=== PATIENT | male | born 1965 | race American Indian/Alaskan Native ===

== ENCOUNTER 2017-12-24 15:00 | Emergency (ER) | payer SELFPAY ==
[2017-12-24 15:24] VITALS: BP 125/81
[2017-12-24] MEDS ORDERED: LIDOCAINE VISCOUS 2% PO ONE (16:09)
[2017-12-24] MEDS ORDERED: ALUM-MAG HYDROX-SIMETH 200-200-20MG/5ML PO ONE (16:09)
[2017-12-24] MEDS ORDERED: NORCO 5/325 PO ONE (16:10)
--- NOTE | 2017-12-24 16:13 | Emergency Department Report ---
HPI - General Chief Complaint: Chest Pain Time Seen by Provider: 12/24/17 15:59 - HPI HPI: The patient is a 52-year-old male who presents for evaluation of chest pain and back pain. The patient has a long-standing history of chronic chest and back pain. He states that his current episode began at 5 AM this morning, greater than 8 hours prior to my evaluation. He states that his chest and back pain have been constant since onset this am, aching in quality, 5/10 in severity, exacerbated with movement. The patient denies blunt trauma to the chest or back , fall, fever, chills, night sweats, cough, dyspnea, syncope, unilateral leg swelling, saddle anesthesia, paresthesias, numbness or tingling in the legs, leg weakness, urine or bowel incontinence or retention, difficulty ambulating, or other focal neurological deficits. ED Past Medical Hx - Past Medical History Hx Hypertension: No Hx CVA: No Hx Heart Attack/AMI: No Hx Congestive Heart Failure: No Hx Diabetes: No Hx Deep Vein Thrombosis: No Hx Pulmonary Embolism: No Hx GERD: Yes Hx Liver Disease: No Hx Renal Disease: No Hx Sickle Cell Disease: No Hx Arthritis: No Hx Headaches / Migraines: Yes (migraines) Hx Seizures: No Hx Kidney Stones: No Hx Psychiatric Treatment: No Hx Asthma: No Hx COPD: No Hx Tuberculosis: No Hx Dementia: No Hx HIV: No Additional medical history: Drug-seeking behavior. Narcotic abuse - patient denies. chronic pain, sciatica - Surgical History Past Surgical History?: Yes Hx Coronary Stent: No Hx Open Heart Surgery: No Hx Pacemaker: No Hx Internal Defibrillator: No Hx Cholecystectomy: Yes Hx Appendectomy: No Hx Breast Surgery: No - Social History Smoking Status: Never Smoker Substance Use Type: None - Medications Home Medications: Home Medications Medication Instructions Recorded Confirmed Last Taken Type Ranitidine HCl [Zantac 150 MG TAB] 75 mg PO QDAY 05/12/16 08/08/16 1 Day Ago History ~05/27/16 75 Famotidine [Pepcid] 20 mg PO BID #30 tablet 08/20/16 Unknown Rx HYDROcodone/APAP 7.5-325 [[place] 1 each PO Q8HR PRN #7 tablet 08/20/16 Unknown Rx 7.5-325 mg TAB] Ondansetron [Zofran TAB] 4 mg PO Q8HR PRN #14 tablet 08/20/16 Unknown Rx traMADol [Ultram 50 MG tab] 50 mg PO Q6HR PRN #6 tablet 09/09/16 Unknown Rx HYDROcodone/APAP 5-325 [[place] 1 each PO Q6HR PRN #7 tablet 12/24/17 Unknown Rx 5/325] ED Review of Systems ROS: Stated complaint: CHEST PAIN/LOWER BACK PAIN Other details as noted in HPI Constitutional: denies: fever ENT: denies: throat or neck pain Respiratory: denies: cough, shortness of breath Cardiovascular: reports chest pain Endocrine: denies unexplained weight loss or gain Gastrointestinal: denies: abdominal pain, nausea Genitourinary: denies: dysuria Musculoskeletal: Reports chest pain and back pain denies: leg swelling Skin: denies: rash Neurological: denies: headache Hematological/Lymphatic: denies: easy bleeding or easy bruising Psych: denies sadness or hopelessness Physical Exam - Physical Exam Vital Signs: Vital Signs 12/24/17 15:21 Temperature 97.9 F Pulse Rate 90 Respiratory 18 Rate Blood Pressure 125/81 O2 Sat by Pulse 100 Oximetry Physical Exam: General: well-nourished, well-developed, no acute distress Head: Normocephalic, atraumatic Eyes: normal sclera ENT: Mucous membranes are pink and moist Neck: trachea midline, neck supple, No neck stiffness, no cervical adenopathy Respiratory: Breath sounds equal bilaterally, no wheezing, rales, or rhonchi Cardio: S1 and S2 present, no murmurs, rubs, gallops, capillary refill is brisk Abdomen: Normoactive bowel sounds, soft abdomen, no rigidity, no guarding or rebound tenderness Musc: Tenderness to palpation present to bilateral lumbar paraspinal musculature , pain is elicited with flexion at the hip, normal active range of motion at the hip intact, no spinous step-off or obvious deformity, ipsi-lateral and contralateral straight leg raise tests are negative. On extremity testing, compartments are soft and pliable, no obvious gross motor strength deficit, 5+ motor strength, including extension of the great toe bilaterally, no muscular atrophy, spasticity, fasciculations, or clonus, no obvious gross sensation deficit including web space between 1st and 2nd toes, reflexes 2+ & symmetric on DTR testing at the knee and ankle joints, distal pulses intact. Skin: No rash Neuro: no facial drooping, normal speech Psych: Normal affect ED Course Vital Signs 12/24/17 15:21 Temperature 97.9 F Pulse Rate 90 Respiratory 18 Rate Blood Pressure 125/81 O2 Sat by Pulse 100 Oximetry ED Medical Decision Making - Medical Decision Making The patient was seen and examined by myself. The patient is placed on a diagnostic cardiac sonographer and continuous pulse ox. On initial evaluation, the patient was found to be in no distress. No findings on exam concerning for cauda equina syndrome, spinal stenosis, or epidural abscess. As the patient has no midline tenderness on exam, no neuro deficits, and no findings concerning for emergent etiology of their back pain, imaging will not be obtained at this time. EKG is unremarkable. X-ray of the chest is negative for acute cardio cardiopulmonary disease process. The patient is given pain medicine. The patient was reevaluated and reported that their pain significantly improved. The patient is stable for discharge with outpatient follow-up. The patient is given follow-up and return instructions. The patient expressed understanding and agreed with the plan. The patient is discharged in stable condition. Critical care attestation.: If time is entered above; I have spent that time in minutes in the direct care of this critically ill patient, excluding procedure time. ED Disposition Clinical Impression: Acute chest pain, Acute right-sided low back pain without sciatica Disposition: TO HOME OR SELFCARE Is pt being admited?: No Does the pt Need Aspirin: No Condition: Stable Instructions: Chest Pain (ED), Back Pain (ED) Prescriptions: HYDROcodone/APAP 5-325 [[place] 5/325] 1 each PO Q6HR PRN #7 tablet PRN Reason: Pain Referrals: [facility] [Outside] - 3-5 Days Time of Disposition: 16:10
--- NOTE | 2017-12-24 18:23 | XRay Report ---
FINAL REPORT PROCEDURE: XR CHEST 1V AP TECHNIQUE: Chest radiograph anteroposterior view. CPT 08160 HISTORY: Chest pain. COMPARISON: No prior studies are available for comparison. FINDINGS: Heart: Normal. Mediastinum/Vessels: Mild aortic tortuosity. Lungs/Pleural space: Normal. Bony thorax: No acute osseous abnormality. Mild levo scoliotic curvature of the thoracic spine. Life support devices: None. IMPRESSION: No radiographic evidence of acute cardiopulmonary disease.
== END 2017-12-24 16:40 | disposition home or self-care (01) ==
LOC: ED 15:00
DX: R07.9 Chest pain, unspecified (principal); M54.5 Low back pain; K21.9 Gastro-esophageal reflux disease without esophagitis
CPT/HCPCS: 71045; 93005; 93010

== ENCOUNTER 2018-01-03 00:32 | Emergency (ER) | payer MEDICAID, OTHER ==
[2018-01-03 01:01] VITALS: BP 150/77
[2018-01-03 02:50] LABS: BUN/Creatinine Ratio 13; Blood Urea Nitrogen 12 mg/dL (9-20); Calcium 9.2 mg/dL (8.4-10.2); Hemolysis Index 2
[2018-01-03 02:51] LABS: Mean Corpuscular HGB Conc 28 % (32-34); Platelet Count 460 K/mm3 (140-440); Red Blood Count 4.09 M/mm3 (3.65-5.03)
[2018-01-03 02:52] LABS: Hematocrit 26.7 % (35.5-45.6); Hemoglobin 7.4 gm/dl (11.8-15.2); Mean Corpuscular Hemoglobin 18 pg (28-32); Mean Corpuscular Volume 65 fl (84-94); Red Cell Distribution Width 21.1 % (13.2-15.2)
[2018-01-03 03:49] LABS: Basophils % (Manual) 0 % (0.0-1.8); Eosinophils % (Manual) 0 % (0.0-4.3); Monocytes % (Manual) 0 % (0.0-7.3); Total Cells Counted 100
[2018-01-03 03:50] LABS: Giant Platelets Few; Hypochromasia 1+; Platelet Estimate Consistent w Auto; Tear Drop Cells Few
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
[2018-01-03] MEDS ORDERED: NORCO 5/325 PO ONE (06:33)
== END 2018-01-03 06:48 | disposition home or self-care (01) ==
LOC: ED 00:32
DX: R07.89 Other chest pain (principal); M54.16 Radiculopathy, lumbar region; G43.909 Migraine, unspecified, not intractable, without status migrainosus; Z88.6 Allergy status to analgesic agent; Z88.8 Allergy status to other drugs, medicaments and biological substances
CPT/HCPCS: 36415; 80048; 84484; 85007; 85025; 93005; 93010; 99284

== ENCOUNTER 2018-01-14 15:49 | Emergency (ER) | payer MEDICAID ==
[2018-01-14 15:57] VITALS: BP 136/79
--- NOTE | 2018-01-14 18:13 | Emergency Department Report ---
ED General Adult HPI - General Chief complaint: Back Pain/Injury Stated complaint: BACK PAIN Time Seen by Provider: 01/14/18 18:12 Source: patient Mode of arrival: Ambulatory Limitations: No Limitations - History of Present Illness Initial comments: Patient is a 52-year-old male past medical history of lower back pain who presents with lower back pain that is a 7 out of 10 for the last two days. Patient presents with burning discharge he also states that the pain radiates to his right lower leg. He states that nothing makes the pain better or worse. He states that he denies having any plan or paresthesia or any nausea or vomiting. No fevers or chills no trauma to his lower back. Patient states that this low back pain is similar to the low back panties had in the past. - Related Data Home Medications Medication Instructions Recorded Confirmed Last Taken Ranitidine HCl [Zantac 150 MG TAB] 75 mg PO QDAY 05/12/16 08/08/16 1 Day Ago ~05/27/16 75 Previous Rx's Medication Instructions Recorded Last Taken Type Famotidine [Pepcid] 20 mg PO BID #30 tablet 08/20/16 Unknown Rx HYDROcodone/APAP 7.5-325 [[place] 1 each PO Q8HR PRN #7 tablet 08/20/16 Unknown Rx 7.5-325 mg TAB] Ondansetron [Zofran TAB] 4 mg PO Q8HR PRN #14 tablet 08/20/16 Unknown Rx traMADol [Ultram 50 MG tab] 50 mg PO Q6HR PRN #6 tablet 09/09/16 Unknown Rx HYDROcodone/APAP 5-325 [[place] 1 each PO Q6HR PRN #7 tablet 12/24/17 Unknown Rx 5/325] HYDROcodone/APAP 5-325 [[place] 1 each PO Q6HR PRN #7 tablet 01/03/18 Unknown Rx 5/325] Cyclobenzaprine [Flexeril] 10 mg PO TID PRN #30 tablet 01/14/18 Unknown Rx Sulfamethoxazole/Trimethoprim 1 each PO BID #14 tablet 01/14/18 Unknown Rx [Bactrim DS TAB] traMADol [Ultram 50 MG tab] 50 mg PO Q6HR PRN #13 tablet 01/14/18 Unknown Rx Allergies Allergy/AdvReac Type Severity Reaction Status Date / Time ibuprofen Allergy Rash Verified 12/08/15 18:32 ketorolac tromethamine Allergy Itching Verified 12/08/15 18:32 [From Toradol] nalbuphine HCl [From Nubain] Allergy Itching Verified 12/08/15 18:32 naproxen Allergy Rash Verified 12/08/15 18:32 tramadol Allergy Rash Verified 12/08/15 18:32 ED Review of Systems ROS: Stated complaint: BACK PAIN Other details as noted in HPI Constitutional: denies: chills, fever Eyes: denies: eye pain, eye discharge, vision change ENT: denies: ear pain, throat pain Respiratory: denies: cough, shortness of breath, wheezing Cardiovascular: denies: chest pain, palpitations Endocrine: no symptoms reported Gastrointestinal: denies: abdominal pain, nausea, diarrhea Genitourinary: dysuria. denies: urgency Musculoskeletal: back pain. denies: joint swelling, arthralgia Skin: denies: rash, lesions Neurological: denies: headache, weakness, paresthesias Psychiatric: denies: anxiety, depression Hematological/Lymphatic: denies: easy bleeding, easy bruising ED Past Medical Hx - Past Medical History Hx Hypertension: No Hx CVA: No Hx Heart Attack/AMI: No Hx Congestive Heart Failure: No Hx Diabetes: No Hx Deep Vein Thrombosis: No Hx Pulmonary Embolism: No Hx GERD: Yes Hx Liver Disease: No Hx Renal Disease: No Hx Sickle Cell Disease: No Hx Arthritis: No Hx Headaches / Migraines: Yes (migraines) Hx Seizures: No Hx Kidney Stones: No Hx Psychiatric Treatment: No Hx Asthma: No Hx COPD: No Hx Tuberculosis: No Hx Dementia: No Hx HIV: No Additional medical history: Drug-seeking behavior. Narcotic abuse - patient denies. chronic pain, sciatica - Surgical History Hx Coronary Stent: No Hx Open Heart Surgery: No Hx Pacemaker: No Hx Internal Defibrillator: No Hx Cholecystectomy: Yes Hx Appendectomy: No Hx Breast Surgery: No - Social History Smoking Status: Never Smoker Substance Use Type: None - Medications Home Medications: Home Medications Medication Instructions Recorded Confirmed Last Taken Type Ranitidine HCl [Zantac 150 MG TAB] 75 mg PO QDAY 05/12/16 08/08/16 1 Day Ago History ~05/27/16 75 Famotidine [Pepcid] 20 mg PO BID #30 tablet 08/20/16 Unknown Rx HYDROcodone/APAP 7.5-325 [[place] 1 each PO Q8HR PRN #7 tablet 08/20/16 Unknown Rx 7.5-325 mg TAB] Ondansetron [Zofran TAB] 4 mg PO Q8HR PRN #14 tablet 08/20/16 Unknown Rx traMADol [Ultram 50 MG tab] 50 mg PO Q6HR PRN #6 tablet 09/09/16 Unknown Rx HYDROcodone/APAP 5-325 [[place] 1 each PO Q6HR PRN #7 tablet 12/24/17 Unknown Rx 5/325] HYDROcodone/APAP 5-325 [[place] 1 each PO Q6HR PRN #7 tablet 01/03/18 Unknown Rx 5/325] Cyclobenzaprine [Flexeril] 10 mg PO TID PRN #30 tablet 01/14/18 Unknown Rx Sulfamethoxazole/Trimethoprim 1 each PO BID #14 tablet 01/14/18 Unknown Rx [Bactrim DS TAB] traMADol [Ultram 50 MG tab] 50 mg PO Q6HR PRN #13 tablet 01/14/18 Unknown Rx ED Physical Exam - General Limitations: No Limitations General appearance: alert, in no apparent distress - Head Head exam: Present: atraumatic, normocephalic - Eye Eye exam: Present: normal appearance - ENT ENT exam: Present: mucous membranes moist - Neck Neck exam: Present: normal inspection - Respiratory Respiratory exam: Present: normal lung sounds bilaterally. Absent: respiratory distress - Cardiovascular Cardiovascular Exam: Present: regular rate, normal rhythm. Absent: systolic murmur, diastolic murmur, rubs, gallop - GI/Abdominal GI/Abdominal exam: Present: soft, normal bowel sounds - Rectal Rectal exam: Present: deferred - Extremities Exam Extremities exam: Present: normal inspection - Back Exam Back exam: Present: normal inspection - Neurological Exam Neurological exam: Present: alert, oriented X3 - Psychiatric Psychiatric exam: Present: normal affect, normal mood - Skin Skin exam: Present: warm, dry, intact, normal color. Absent: rash ED Course Vital Signs 01/14/18 15:53 Temperature 98.4 F Pulse Rate 73 Respiratory 16 Rate Blood Pressure 136/79 O2 Sat by Pulse 100 Oximetry ED Medical Decision Making - Medical Decision Making Chief medical diagnosis: Chronic lower back pain Differential medical diagnosis: Slipped disk, urethritis Patient refuses to have a urinalysis done I will give patient oral pain medication and antibiotics to go home. Discussed plan with patient and patient agrees with discharge. Additional verbal discharge instructions were given. Critical care attestation.: If time is entered above; I have spent that time in minutes in the direct care of this critically ill patient, excluding procedure time. ED Disposition Clinical Impression: Urethritis Chronic pain Qualifiers: Chronic pain type: other chronic pain Qualified Code(s): G89.29 - Other chronic pain Low back pain Qualifiers: Chronicity: chronic Back pain laterality: right Sciatica presence: with sciatica Sciatica laterality: sciatica of right side Qualified Code(s): M54.41 - Lumbago with sciatica, right side Disposition: TO HOME OR SELFCARE Is pt being admited?: No Does the pt Need Aspirin: No Condition: Stable Instructions: Nonspecific Urethritis in Men (ED) Prescriptions: Cyclobenzaprine [Flexeril] 10 mg PO TID PRN #30 tablet PRN Reason: Muscle Spasm Sulfamethoxazole/Trimethoprim [Bactrim DS TAB] 1 each PO BID #14 tablet traMADol [Ultram 50 MG tab] 50 mg PO Q6HR PRN #13 tablet PRN Reason: Pain Referrals: JAQUELINE GILLETTE MD [Staff Physician] - 3-5 Days Forms: [facility]
== END 2018-01-14 18:20 | disposition home or self-care (01) ==
LOC: ED 15:49
DX: N34.2 Other urethritis (principal); G89.29 Other chronic pain; M54.5 Low back pain; G43.909 Migraine, unspecified, not intractable, without status migrainosus; Z88.6 Allergy status to analgesic agent; Z88.8 Allergy status to other drugs, medicaments and biological substances
CPT/HCPCS: 99282

== ENCOUNTER 2018-02-07 10:52 | Emergency (ER) | payer MEDICAID ==
[2018-02-07 11:10] VITALS: BP 117/81
[2018-02-07 11:44] LABS: Bilirubin,Urine NEG (Negative); Blood,Urine NEG (Negative); Color,Urine Yellow (Yellow); Mucus,Urine 3+ /HPF; Sperm,Urine 2+ /HPF (NP)
--- NOTE | 2018-02-07 12:31 | XRay Report ---
Single view abdomen: History: Abdominal pain, status post surgery on 01/25. Findings: Contrast is noted in large bowel. No bowel distention. No radiopaque lupus abnormal calcification. Impression: Contrast noted in the transverse and descending colon and rectum. No bowel distention.
[2018-02-07 12:34] LABS: Eosinophils # (Auto) 0.4 K/mm3 (0.0-0.4); Eosinophils % (Auto) 3.4 % (0.0-4.3); Monocytes # (Auto) 0.7 K/mm3 (0.0-0.8); Monocytes % (Auto) 6.5 % (0.0-7.3)
[2018-02-07 12:45] LABS: Hemoglobin 9.4 gm/dl (11.8-15.2); Mean Corpuscular HGB Conc 30 % (32-34); Mean Corpuscular Hemoglobin 21 pg (28-32); Mean Corpuscular Volume 69 fl (84-94); Red Blood Count 4.48 M/mm3 (3.65-5.03); Red Cell Distribution Width 24.1 % (13.2-15.2)
[2018-02-07 12:46] LABS: Basophils % (Auto) 0.2 % (0.0-1.8); Lymphocytes % (Auto) 9.3 % (13.4-35.0)
[2018-02-07 12:51] LABS: Alanine Aminotransferase 15 units/L (7-56); Albumin 3.6 g/dL (3.9-5); BUN/Creatinine Ratio 11; Blood Urea Nitrogen 12 mg/dL (9-20); Calcium 9.5 mg/dL (8.4-10.2); Hemolysis Index 15; Lipase 16 units/L (13-60)
[2018-02-07 12:52] LABS: Mean Platelet Volume 7.5 fl (6-12); Platelet Count 1034 K/mm3 (140-440)
--- NOTE | 2018-02-07 13:12 | Emergency Department Report ---
HPI - General Chief Complaint: Abdominal Pain Time Seen by Provider: 02/07/18 12:08 - HPI HPI: 52-year-old male coming in with periumbilical pain starting on this morning. he states that her pain is accompanied by nausea, no vomiting or urinary symptoms.. Patient has not taking any medication at home for his symptoms. ED Past Medical Hx - Past Medical History Previous Medical History?: Yes Hx Hypertension: No Hx CVA: No Hx Heart Attack/AMI: No Hx Congestive Heart Failure: No Hx Diabetes: No Hx Deep Vein Thrombosis: No Hx Pulmonary Embolism: No Hx GERD: Yes Hx Liver Disease: No Hx Renal Disease: No Hx Sickle Cell Disease: No Hx Arthritis: No Hx Headaches / Migraines: Yes (migraines) Hx Seizures: No Hx Kidney Stones: No Hx Psychiatric Treatment: No Hx Asthma: No Hx COPD: No Hx Tuberculosis: No Hx Dementia: No Hx HIV: No Additional medical history: Drug-seeking behavior. Narcotic abuse - patient denies. 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 eye - Surgical History Past Surgical History?: Yes Hx Coronary Stent: No Hx Open Heart Surgery: No Hx Pacemaker: No Hx Internal Defibrillator: No Hx Cholecystectomy: Yes Hx Appendectomy: No Hx Breast Surgery: No - Social History Smoking Status: Never Smoker Substance Use Type: Prescribed - Medications Home Medications: Home Medications Medication Instructions Recorded Confirmed Last Taken Type Ranitidine HCl [Zantac 150 MG TAB] 75 mg PO QDAY 05/12/16 08/08/16 1 Day Ago History ~05/27/16 75 Famotidine [Pepcid] 20 mg PO BID #30 tablet 08/20/16 Unknown Rx HYDROcodone/APAP 7.5-325 [[place] 1 each PO Q8HR PRN #7 tablet 08/20/16 Unknown Rx 7.5-325 mg TAB] Ondansetron [Zofran TAB] 4 mg PO Q8HR PRN #14 tablet 08/20/16 Unknown Rx traMADol [Ultram 50 MG tab] 50 mg PO Q6HR PRN #6 tablet 09/09/16 Unknown Rx HYDROcodone/APAP 5-325 [[place] 1 each PO Q6HR PRN #7 tablet 12/24/17 Unknown Rx 5/325] HYDROcodone/APAP 5-325 [[place] 1 each PO Q6HR PRN #7 tablet 01/03/18 Unknown Rx 5/325] Sulfamethoxazole/Trimethoprim 1 each PO BID #14 tablet 01/14/18 Unknown Rx [Bactrim DS TAB] traMADol [Ultram 50 MG tab] 50 mg PO Q6HR PRN #13 tablet 01/14/18 Unknown Rx Cyclobenzaprine [Flexeril 10 MG 10 mg PO TID PRN #30 tablet 02/07/18 Unknown Rx TAB] ED Review of Systems ROS: Stated complaint: COMPLICATIONS FROM ABD SURGERY Other details as noted in HPI Constitutional: no symptoms reported Cardiovascular: denies: chest pain Gastrointestinal: abdominal pain Physical Exam - Physical Exam Vital Signs: Vital Signs 02/07/18 11:06 Temperature 98.3 F Pulse Rate 127 H Respiratory 20 Rate Blood Pressure 117/81 O2 Sat by Pulse 97 Oximetry Physical Exam: - Physical Exam Physical Exam: - General Limitations: No Limitations General appearance: alert, in no apparent distress, obese - Head Head exam: Present: atraumatic, normocephalic - Eye Eye exam: Present: normal appearance - ENT ENT exam: Present: mucous membranes moist - Neck Neck exam: Present: normal inspection - Respiratory Respiratory exam: Present: normal lung sounds bilaterally. Absent: respiratory distress - Cardiovascular Cardiovascular Exam: Present: normal rhythm. Absent: systolic murmur, diastolic murmur, rubs, gallop - GI/Abdominal GI/Abdominal exam: Present: soft, normal bowel sounds - Extremities Exam Extremities exam: Present: normal inspection - Back Exam Back exam: Present: normal inspection - Neurological Exam Neurological exam: Present: alert, oriented X3 - Psychiatric Psychiatric exam: normal affect and mood - Skin Skin exam: Present: warm, dry, intact, normal color. Absent: rash ED Course Vital Signs 02/07/18 11:06 Temperature 98.3 F Pulse Rate 127 H Respiratory 20 Rate Blood Pressure 117/81 O2 Sat by Pulse 97 Oximetry ED Medical Decision Making - Lab Data Result diagrams: 02/07/18 11:52 02/07/18 11:52 Critical care attestation.: If time is entered above; I have spent that time in minutes in the direct care of this critically ill patient, excluding procedure time. ED Disposition Clinical Impression: Abdominal pain Qualifiers: Abdominal location: generalized Qualified Code(s): R10.84 - Generalized abdominal pain Disposition: - TO HOME OR SELFCARE Is pt being admited?: No Does the pt Need Aspirin: No Condition: Stable Prescriptions: Cyclobenzaprine [Flexeril 10 MG TAB] 10 mg PO TID PRN #30 tablet PRN Reason: Muscle Spasm Referrals: PRIMARY CARE, [Primary Care Provider] - 3-5 Days
== END 2018-02-07 13:36 | disposition home or self-care (01) ==
LOC: ED 10:52
DX: R10.9 Unspecified abdominal pain (principal)
CPT/HCPCS: 36415; 74018; 80053; 81001; 83690; 85025

== ENCOUNTER 2018-02-12 11:15 | Emergency (ER) | payer MEDICAID ==
[2018-02-12 11:27] VITALS: BP 136/84
--- NOTE | 2018-02-12 12:36 | Emergency Department Report ---
HPI - General Chief Complaint: Back Pain/Injury Time Seen by Provider: 02/12/18 12:29 - HPI HPI: 52-year-old male presents to the emergency department with 2 complaints. First, he has some right lateral lower back pain with some radiation down his leg that has been going on for the past 2 days. He has a history of chronic back pains and this seems to be an exacerbation of those pains. He denies any numbness or paresthesias, problems with bowel or bladder, or any neurological deficits. He says he does have a slight limp secondary to the pain. His second complaint is that of a toothache to the right lower back molar. The patient is getting a frontal bridge placed in about one week and may potentially undergoing to pull that tooth that is bothering him. He denies any fever, drooling, trismus, facial swelling. He has not taken anything for her symptoms prior to presentation. Patient goes to see Isaac Cortes for primary care and says he has an appointment next Thursday. ED Past Medical Hx - Past Medical History Hx Hypertension: No Hx CVA: No Hx Heart Attack/AMI: No Hx Congestive Heart Failure: No Hx Diabetes: No Hx Deep Vein Thrombosis: No Hx Pulmonary Embolism: No Hx GERD: Yes Hx Liver Disease: No Hx Renal Disease: No Hx Sickle Cell Disease: No Hx Arthritis: No Hx Headaches / Migraines: Yes (migraines) Hx Seizures: No Hx Kidney Stones: No Hx Psychiatric Treatment: No Hx Asthma: No Hx COPD: No Hx Tuberculosis: No Hx Dementia: No Hx HIV: No Additional medical history: Drug-seeking behavior. Narcotic abuse - patient denies. 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 eye - Surgical History Hx Coronary Stent: No Hx Open Heart Surgery: No Hx Pacemaker: No Hx Internal Defibrillator: No Hx Cholecystectomy: Yes Hx Appendectomy: No Hx Breast Surgery: No - Social History Smoking Status: Never Smoker Substance Use Type: Prescribed - Medications Home Medications: Home Medications Medication Instructions Recorded Confirmed Last Taken Type Ranitidine HCl [Zantac 150 MG TAB] 75 mg PO QDAY 05/12/16 08/08/16 1 Day Ago History ~05/27/16 75 Famotidine [Pepcid] 20 mg PO BID #30 tablet 08/20/16 Unknown Rx Ondansetron [Zofran TAB] 4 mg PO Q8HR PRN #14 tablet 08/20/16 Unknown Rx Sulfamethoxazole/Trimethoprim 1 each PO BID #14 tablet 01/14/18 Unknown Rx [Bactrim DS TAB] methOCARBAMOL [Robaxin TAB] 1,000 mg PO Q8H PRN #20 tab 02/12/18 Unknown Rx traMADol [Ultram 50 MG tab] 50 mg PO Q8H PRN #5 tablet 02/12/18 Unknown Rx ED Review of Systems ROS: Stated complaint: LOWER BACK PAIN Other details as noted in HPI Comment: All other systems reviewed and negative Constitutional: denies: chills, fever Eyes: denies: eye pain, eye discharge, vision change ENT: dental pain. denies: ear pain, throat pain Respiratory: denies: cough, shortness of breath, wheezing Cardiovascular: denies: chest pain, palpitations Gastrointestinal: denies: abdominal pain, nausea, diarrhea Musculoskeletal: back pain. denies: joint swelling Skin: denies: rash, lesions Neurological: denies: headache, numbness, paresthesias Physical Exam - Physical Exam Vital Signs: Vital Signs 02/12/18 11:25 Temperature 98.5 F Pulse Rate 90 Respiratory 16 Rate Blood Pressure 136/84 O2 Sat by Pulse 100 Oximetry Physical Exam: GENERAL: The patient is well-developed well-nourished. HENT: Normocephalic. Atraumatic. Patient has moist mucous membranes. EYES: Extraocular motions are intact. Pupils equal reactive to light bilaterally. NECK: Supple. Trachea is midline. CHEST/LUNGS: Clear to auscultation. There is no respiratory distress noted. HEART/CARDIOVASCULAR: Regular. There is no tachycardia. There is no murmur. ABDOMEN: Abdomen is soft, nontender. Patient has normal bowel sounds. There is no abdominal distention. SKIN: Skin is warm and dry. NEURO: The patient is awake, alert, and oriented. The patient is cooperative. The patient has no focal neurologic deficits. The patient has normal speech. MUSCULOSKELETAL: There is no tenderness or deformity. There is no limitation range of motion. There is no evidence of acute injury. BACK: No midline thoracic or lumbar tenderness to palpation, step-off or deformity. There is some right lumbar paraspinal tenderness to palpation. ED Course Vital Signs 02/12/18 11:25 Temperature 98.5 F Pulse Rate 90 Respiratory 16 Rate Blood Pressure 136/84 O2 Sat by Pulse 100 Oximetry ED Medical Decision Making - Medical Decision Making Patient has a history of some chronic back pains and chronic sciatica pains. This appears consistent with those previous diagnosis. No new trauma or injury. He does not have any problems with bowel or bladder, numbness or paresthesias or any neurological deficits. It appears low suspicion for any of the emergency back condition such as cauda equina, cord compression or epidural abscess. Vital signs stable throughout his ED course. He said he is set up for an appointment with his primary care physician for next Thursday. He was given a very small amount of pain medication and some muscle relaxers. Encouraged to return to the emergency Department with any worsening of symptoms or any acute distress. - Differential Diagnosis sciatica, muscle spasm, contusion, back sprain Critical Care Time: No Critical care attestation.: If time is entered above; I have spent that time in minutes in the direct care of this critically ill patient, excluding procedure time. ED Disposition Clinical Impression: Toothache Low back pain Qualifiers: Chronicity: chronic Back pain laterality: right Sciatica presence: with sciatica Sciatica laterality: sciatica of right side Qualified Code(s): M54.41 - Lumbago with sciatica, right side Sciatica Qualifiers: Laterality: right Qualified Code(s): M54.31 - Sciatica, right side Disposition: TO HOME OR SELFCARE Is pt being admited?: No Condition: Stable Instructions: Lumbar Radiculopathy (ED), Toothache (ED), Back Pain (ED) Additional Instructions: Please follow-up with your primary care physician and/or dentist. Return to the emergency Department with any worsening of your symptoms, facial swelling, inability to swallow, or any acute distress. You have been prescribed a medication that is sedating and therefore should not be taken prior to driving, working, and responsible for children and in no way should be mixed with alcohol of any quantity. Prescriptions: methOCARBAMOL [Robaxin TAB] 1,000 mg PO Q8H PRN #20 tab PRN Reason: Muscle Spasm traMADol [Ultram 50 MG tab] 50 mg PO Q8H PRN #5 tablet PRN Reason: Pain Referrals: ISAAC CORTES MD [Staff Physician] - 3-5 Days Time of Disposition: 12:36
== END 2018-02-12 12:42 | disposition home or self-care (01) ==
LOC: ED 11:15
DX: M54.41 Lumbago with sciatica, right side (principal); K08.89 Other specified disorders of teeth and supporting structures; K21.9 Gastro-esophageal reflux disease without esophagitis
CPT/HCPCS: 99282

== ENCOUNTER 2018-02-18 10:55 | Emergency (ER) | payer MEDICAID ==
[2018-02-18 11:22] VITALS: BP 123/84
[2018-02-18] MEDS ORDERED: TYLENOL PO ONE (13:53)
--- NOTE | 2018-02-18 14:04 | Emergency Department Report ---
ED Back Pain/Injury HPI - General Chief Complaint: Back Pain/Injury Stated Complaint: BACK PAIN Time Seen by Provider: 02/18/18 12:33 Source: patient Limitations: No Limitations - History of Present Illness Initial Comments: This is a 52-year-old male nontoxic, well nourished in appearance, no acute signs of distress presents to the ED with c/o of acute on chronic lower back pain. Patient stated that the past 2 days he was moving and developed this pain. Patient states has history of sciatica nerve pain which is similar symptoms as today. Patient stated he had MRI with impression of L4-L5 bulging disck. Patient states that pain radiates through to his right lower extremity. Patient denies any trauma. Denies any bladder or bowel instability. Denies any fever, chills, nausea, abdominal pain, vomiting, headache, stiff neck, chest pain or shortness of breath. Patient denies any numbness or tingling. MD Complaint: back pain -: days(s) (2) Similar Symptoms Previously: Yes Radiation: right leg Severity: mild Severity scale (0 -10): 8 Quality: aching Consistency: intermittent Improves With: immobilization Worsens With: movement, walking Context: while lifting, turning/twisting Associated Symptoms: denies other symptoms. denies: confusion, weakness, chest pain, numbness, difficulty walking, cough, difficulty urinating, diaphoresis, incontinence, fever/chills, constipation, headaches, abdominal pain, loss of appetite, malaise, nausea/vomiting, rash, seizure, shortness of breath, syncope - Related Data Home Medications Medication Instructions Recorded Confirmed Last Taken Ranitidine HCl [Zantac 150 MG TAB] 75 mg PO QDAY 05/12/16 08/08/16 1 Day Ago ~05/27/16 75 Previous Rx's Medication Instructions Recorded Last Taken Type Famotidine [Pepcid] 20 mg PO BID #30 tablet 08/20/16 Unknown Rx Ondansetron [Zofran TAB] 4 mg PO Q8HR PRN #14 tablet 08/20/16 Unknown Rx Sulfamethoxazole/Trimethoprim 1 each PO BID #14 tablet 01/14/18 Unknown Rx [Bactrim DS TAB] methOCARBAMOL [Robaxin TAB] 1,000 mg PO Q8H PRN #20 tab 02/12/18 Unknown Rx traMADol [Ultram 50 MG tab] 50 mg PO Q8H PRN #5 tablet 02/12/18 Unknown Rx Acetaminophen [Tylenol Arthritis] 650 mg PO Q8H PRN #30 tablet.er 02/18/18 Unknown Rx Cyclobenzaprine [Flexeril] 10 mg PO QHS PRN #7 tablet 02/18/18 Unknown Rx Allergies Allergy/AdvReac Type Severity Reaction Status Date / Time ibuprofen Allergy Rash Verified 02/12/18 11:25 ketorolac tromethamine Allergy Itching Verified 02/12/18 11:25 [From Toradol] nalbuphine HCl [From Nubain] Allergy Itching Verified 02/12/18 11:25 naproxen Allergy Rash Verified 02/12/18 11:25 tramadol Allergy Rash Verified 02/12/18 11:25 ED Review of Systems ROS: Stated complaint: BACK PAIN Other details as noted in HPI Constitutional: denies: chills, fever Eyes: denies: eye pain, eye discharge, vision change ENT: denies: ear pain, throat pain Respiratory: denies: cough, shortness of breath, wheezing Cardiovascular: denies: chest pain, palpitations Endocrine: no symptoms reported Gastrointestinal: denies: abdominal pain, nausea, diarrhea Genitourinary: denies: urgency, dysuria Musculoskeletal: back pain. denies: joint swelling, arthralgia Skin: denies: rash, lesions Neurological: denies: headache, weakness, paresthesias Psychiatric: denies: anxiety, depression Hematological/Lymphatic: denies: easy bleeding, easy bruising ED Past Medical Hx - Past Medical History Hx Hypertension: No Hx CVA: No Hx Heart Attack/AMI: No Hx Congestive Heart Failure: No Hx Diabetes: No Hx Deep Vein Thrombosis: No Hx Pulmonary Embolism: No Hx GERD: Yes Hx Liver Disease: No Hx Renal Disease: No Hx Sickle Cell Disease: No Hx Arthritis: No Hx Headaches / Migraines: Yes (migraines) Hx Seizures: No Hx Kidney Stones: No Hx Psychiatric Treatment: No Hx Asthma: No Hx COPD: No Hx Tuberculosis: No Hx Dementia: No Hx HIV: No Additional medical history: Drug-seeking behavior. Narcotic abuse - patient denies. 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 eye - Surgical History Hx Coronary Stent: No Hx Open Heart Surgery: No Hx Pacemaker: No Hx Internal Defibrillator: No Hx Cholecystectomy: Yes Hx Appendectomy: No Hx Breast Surgery: No - Social History Smoking Status: Never Smoker Substance Use Type: None - Medications Home Medications: Home Medications Medication Instructions Recorded Confirmed Last Taken Type Ranitidine HCl [Zantac 150 MG TAB] 75 mg PO QDAY 05/12/16 08/08/16 1 Day Ago History ~05/27/16 75 Famotidine [Pepcid] 20 mg PO BID #30 tablet 08/20/16 Unknown Rx Ondansetron [Zofran TAB] 4 mg PO Q8HR PRN #14 tablet 08/20/16 Unknown Rx Sulfamethoxazole/Trimethoprim 1 each PO BID #14 tablet 01/14/18 Unknown Rx [Bactrim DS TAB] methOCARBAMOL [Robaxin TAB] 1,000 mg PO Q8H PRN #20 tab 02/12/18 Unknown Rx traMADol [Ultram 50 MG tab] 50 mg PO Q8H PRN #5 tablet 02/12/18 Unknown Rx Acetaminophen [Tylenol Arthritis] 650 mg PO Q8H PRN #30 tablet.er 02/18/18 Unknown Rx Cyclobenzaprine [Flexeril] 10 mg PO QHS PRN #7 tablet 02/18/18 Unknown Rx ED Physical Exam - General Limitations: No Limitations General appearance: alert, in no apparent distress - Head Head exam: Present: atraumatic, normocephalic - Eye Eye exam: Present: normal appearance Pupils: Present: normal accommodation - ENT ENT exam: Present: normal exam, mucous membranes moist - Neck Neck exam: Present: normal inspection, full ROM. Absent: tenderness, meningismus, lymphadenopathy - Respiratory Respiratory exam: Present: normal lung sounds bilaterally. Absent: respiratory distress, wheezes, rales, rhonchi, stridor, chest wall tenderness, accessory muscle use, decreased breath sounds, prolonged expiratory - Cardiovascular Cardiovascular Exam: Present: regular rate, normal rhythm, normal heart sounds. Absent: bradycardia, tachycardia, irregular rhythm, systolic murmur, diastolic murmur, rubs, gallop - GI/Abdominal GI/Abdominal exam: Present: soft, normal bowel sounds. Absent: distended, tenderness, guarding, rebound, rigid, diminished bowel sounds - Rectal Rectal exam: Present: deferred - Extremities Exam Extremities exam: Present: normal inspection, full ROM, normal capillary refill. Absent: tenderness, calf tenderness - Back Exam Back exam: Present: normal inspection, full ROM, paraspinal tenderness (right paralumbar region). Absent: tenderness, CVA tenderness (R), CVA tenderness (L) , muscle spasm, vertebral tenderness, rash noted - Expanded Back Exam Expanded Back exam: Absent: saddle anesthesia Back exam: Negative Straight Leg Raising: Right, Left - Neurological Exam Neurological exam: Present: alert, oriented X3, normal gait - Psychiatric Psychiatric exam: Present: normal affect, normal mood - Skin Skin exam: Present: warm, dry, intact, normal color. Absent: rash ED Course Vital Signs 02/18/18 11:18 Temperature 97.9 F Pulse Rate 85 Respiratory 18 Rate Blood Pressure 123/84 O2 Sat by Pulse 99 Oximetry - Reevaluation(s) Reevaluation #1: 02/18/18 14:06 Patient is speaking in full sentences with no signs of distress noted. ED Medical Decision Making - Medical Decision Making This is a 52-year-old male that presents with low back strain. Patient is stable was examined by me. There is no spinal tenderness. There is no cauda equina syndrome during examination. No bladder or bowel instability. Patient received Tylnol in the ED which stated his symptoms has resolved and subsided. Patient is discharged with muscle relaxant and Tylenol. Patient was instructed not to operate any machinery while taking muscle relaxant as they cause her drowsiness. Patient was referred to Follow-up with a primary care doctor in 3- 5 days or if symptoms worsen and continue return to emergency room as soon as possible. At time of discharge, the patient does not seem toxic or ill in appearance. No acute signs of distress noted. Patient agrees to discharge treatment plan of care. No further questions noted by the patient. This chart is dictated with using [employer] Critical care attestation.: If time is entered above; I have spent that time in minutes in the direct care of this critically ill patient, excluding procedure time. ED Disposition Clinical Impression: Low back strain Qualifiers: Encounter type: initial encounter Qualified Code(s): S39.012A - Strain of muscle, fascia and tendon of lower back, initial encounter Chronic back pain Qualifiers: Back pain location: low back pain Back pain laterality: right Sciatica presence : with sciatica Sciatica laterality: sciatica of right side Qualified Code(s): M54.41 - Lumbago with sciatica, right side; G89.29 - Other chronic pain Disposition: DC-01 TO HOME OR SELFCARE Is pt being admited?: No Does the pt Need Aspirin: No Condition: Stable Instructions: Cyclobenzaprine (By mouth), Acetaminophen (By mouth) Additional Instructions: Follow-up with your primary care doctor in 3-5 days or if symptoms worsen such as bladder or bowel stability, chest pain, short of breath, numbness or tingling sensation in extremities, headache, dizziness, visual changes, nausea vomiting, or abdominal pain, return back to emergency room as was possible. Prescriptions: Cyclobenzaprine [Flexeril] 10 mg PO QHS PRN #7 tablet PRN Reason: Muscle Spasm Acetaminophen [Tylenol Arthritis] 650 mg PO Q8H PRN #30 tablet.er PRN Reason: Pain Referrals: PRIMARY CARE, [Primary Care Provider] - 3-5 Days DONNA MELGOZA MD [Staff Physician] - 3-5 Days [facility] [Outside] - 3-5 Days [facility] [Outside] - 3-5 Days
== END 2018-02-18 14:08 | disposition home or self-care (01) ==
LOC: ED 10:55
DX: S39.012A Strain of muscle, fascia and tendon of lower back, initial encounter (principal); G43.909 Migraine, unspecified, not intractable, without status migrainosus; K21.9 Gastro-esophageal reflux disease without esophagitis; Z88.6 Allergy status to analgesic agent; X58.XXXA Exposure to other specified factors, initial encounter; Y93.89 Activity, other specified; Y92.89 Other specified places as the place of occurrence of the external cause; Y99.8 Other external cause status
CPT/HCPCS: 99282

== ENCOUNTER 2018-03-03 14:45 | Emergency (ER) | payer MEDICAID ==
[2018-03-03 15:03] VITALS: BP 116/78
--- NOTE | 2018-03-03 15:19 | Emergency Department Report ---
ED Back Pain/Injury HPI - General Chief Complaint: Back Pain/Injury Stated Complaint: ABD/BACK PAIN/NAUSEA Time Seen by Provider: 03/03/18 15:09 Source: patient Limitations: No Limitations - History of Present Illness Initial Comments: This is a 52-year-old male, known to me, nontoxic, well nourished in appearance , no acute signs of distress presents to the ED with c/o of acute on chronic lower back pain. Patient denies any new trauma. Patient states has history of sciatica nerve pain which is similar symptoms as today. Patient stated he had MRI with impression of L4-L5 bulging disck. Patient states that pain radiates through to his right lower extremity. Patient denies any trauma. Denies any bladder or bowel instability. Denies any fever, chills, nausea, abdominal pain , vomiting, headache, stiff neck, chest pain or shortness of breath. Patient was given Flexeril and Tylenol in the ED 1 week ago. Patient stated has not been taking Flexeril. Patient is requesting for "Percocet". Patient denies any numbness or tingling. MD Complaint: back pain -: year(s) Similar Symptoms Previously: Yes Severity: mild Severity scale (0 -10): 8 Quality: aching Consistency: intermittent Improves With: immobilization, supine, sitting upright Worsens With: movement, walking Associated Symptoms: denies other symptoms. denies: confusion, weakness, chest pain, numbness, difficulty walking, cough, difficulty urinating, diaphoresis, incontinence, fever/chills, constipation, headaches, abdominal pain, loss of appetite, malaise, nausea/vomiting, rash, seizure, shortness of breath, syncope - Related Data Home Medications Medication Instructions Recorded Confirmed Last Taken Ranitidine HCl [Zantac 150 MG TAB] 75 mg PO QDAY 05/12/16 08/08/16 1 Day Ago ~05/27/16 75 Previous Rx's Medication Instructions Recorded Last Taken Type Famotidine [Pepcid] 20 mg PO BID #30 tablet 08/20/16 Unknown Rx Ondansetron [Zofran TAB] 4 mg PO Q8HR PRN #14 tablet 08/20/16 Unknown Rx Sulfamethoxazole/Trimethoprim 1 each PO BID #14 tablet 01/14/18 Unknown Rx [Bactrim DS TAB] methOCARBAMOL [Robaxin TAB] 1,000 mg PO Q8H PRN #20 tab 02/12/18 Unknown Rx traMADol [Ultram 50 MG tab] 50 mg PO Q8H PRN #5 tablet 02/12/18 Unknown Rx Acetaminophen [Tylenol Arthritis] 650 mg PO Q8H PRN #30 tablet.er 02/18/18 Unknown Rx Cyclobenzaprine [Flexeril] 10 mg PO QHS PRN #7 tablet 02/18/18 Unknown Rx Acetaminophen [Tylenol Arthritis] 650 mg PO Q8H PRN #30 tablet.er 03/03/18 Unknown Rx Allergies Allergy/AdvReac Type Severity Reaction Status Date / Time ibuprofen Allergy Rash Verified 02/12/18 11:25 ketorolac tromethamine Allergy Itching Verified 02/12/18 11:25 [From Toradol] nalbuphine HCl [From Nubain] Allergy Itching Verified 02/12/18 11:25 naproxen Allergy Rash Verified 02/12/18 11:25 tramadol Allergy Rash Verified 02/12/18 11:25 ED Review of Systems ROS: Stated complaint: ABD/BACK PAIN/NAUSEA Other details as noted in HPI Constitutional: denies: chills, fever Eyes: denies: eye pain, eye discharge, vision change ENT: denies: ear pain, throat pain Respiratory: denies: cough, shortness of breath, wheezing Cardiovascular: denies: chest pain, palpitations Endocrine: no symptoms reported Gastrointestinal: denies: abdominal pain, nausea, diarrhea Genitourinary: denies: urgency, dysuria Musculoskeletal: back pain. denies: joint swelling, arthralgia Skin: denies: rash, lesions Neurological: denies: headache, weakness, paresthesias Psychiatric: denies: anxiety, depression Hematological/Lymphatic: denies: easy bleeding, easy bruising ED Past Medical Hx - Past Medical History Hx Hypertension: No Hx CVA: No Hx Heart Attack/AMI: No Hx Congestive Heart Failure: No Hx Diabetes: No Hx Deep Vein Thrombosis: No Hx Pulmonary Embolism: No Hx GERD: Yes Hx Liver Disease: No Hx Renal Disease: No Hx Sickle Cell Disease: No Hx Arthritis: No Hx Headaches / Migraines: Yes (migraines) Hx Seizures: No Hx Kidney Stones: No Hx Psychiatric Treatment: No Hx Asthma: No Hx COPD: No Hx Tuberculosis: No Hx Dementia: No Hx HIV: No Additional medical history: Drug-seeking behavior. Narcotic abuse - patient denies. 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 eye - Surgical History Hx Coronary Stent: No Hx Open Heart Surgery: No Hx Pacemaker: No Hx Internal Defibrillator: No Hx Cholecystectomy: Yes Hx Appendectomy: No Hx Breast Surgery: No - Social History Smoking Status: Never Smoker Substance Use Type: None - Medications Home Medications: Home Medications Medication Instructions Recorded Confirmed Last Taken Type Ranitidine HCl [Zantac 150 MG TAB] 75 mg PO QDAY 05/12/16 08/08/16 1 Day Ago History ~05/27/16 75 Famotidine [Pepcid] 20 mg PO BID #30 tablet 08/20/16 Unknown Rx Ondansetron [Zofran TAB] 4 mg PO Q8HR PRN #14 tablet 08/20/16 Unknown Rx Sulfamethoxazole/Trimethoprim 1 each PO BID #14 tablet 01/14/18 Unknown Rx [Bactrim DS TAB] methOCARBAMOL [Robaxin TAB] 1,000 mg PO Q8H PRN #20 tab 02/12/18 Unknown Rx traMADol [Ultram 50 MG tab] 50 mg PO Q8H PRN #5 tablet 02/12/18 Unknown Rx Acetaminophen [Tylenol Arthritis] 650 mg PO Q8H PRN #30 tablet.er 02/18/18 Unknown Rx Cyclobenzaprine [Flexeril] 10 mg PO QHS PRN #7 tablet 02/18/18 Unknown Rx Acetaminophen [Tylenol Arthritis] 650 mg PO Q8H PRN #30 tablet.er 03/03/18 Unknown Rx ED Physical Exam - General Limitations: No Limitations General appearance: alert, in no apparent distress - Head Head exam: Present: atraumatic, normocephalic - Eye Eye exam: Present: normal appearance Pupils: Present: normal accommodation - ENT ENT exam: Present: normal exam, mucous membranes moist - Neck Neck exam: Present: normal inspection, full ROM. Absent: tenderness, meningismus, lymphadenopathy - Respiratory Respiratory exam: Present: normal lung sounds bilaterally. Absent: respiratory distress, wheezes, rales, rhonchi, stridor, chest wall tenderness, accessory muscle use, decreased breath sounds, prolonged expiratory - Cardiovascular Cardiovascular Exam: Present: regular rate, normal rhythm, normal heart sounds. Absent: bradycardia, tachycardia, irregular rhythm, systolic murmur, diastolic murmur, rubs, gallop - GI/Abdominal GI/Abdominal exam: Present: soft, normal bowel sounds. Absent: distended, tenderness, guarding, rebound, rigid, diminished bowel sounds - Rectal Rectal exam: Present: deferred - Extremities Exam Extremities exam: Present: normal inspection, full ROM, normal capillary refill. Absent: tenderness - Back Exam Back exam: Present: normal inspection, full ROM, paraspinal tenderness (lumbar region). Absent: tenderness, CVA tenderness (R), CVA tenderness (L), muscle spasm, vertebral tenderness, rash noted - Expanded Back Exam Expanded Back exam: Absent: saddle anesthesia Back exam: Negative Straight Leg Raising: Left, Right - Neurological Exam Neurological exam: Present: alert, oriented X3, normal gait - Psychiatric Psychiatric exam: Present: normal affect, normal mood - Skin Skin exam: Present: warm, dry, intact, normal color. Absent: rash ED Course Vital Signs 03/03/18 15:00 Temperature 98.3 F Pulse Rate 79 Respiratory 18 Rate Blood Pressure 116/78 O2 Sat by Pulse 99 Oximetry - Reevaluation(s) Reevaluation #1: 03/03/18 15:20 Patient is speaking in full sentences with no signs of distress noted. ED Medical Decision Making - Medical Decision Making This is a 52-year-old male that presents with low back strain. Patient is stable was examined by me. There is no spinal tenderness. There is no cauda equina syndrome during examination. No bladder or bowel instability. Patient received Tylnol in the ED which stated his symptoms has resolved and subsided. Patient is known to me. [facility] shows that patient has 47 prescriptions by 33 different providers for narcotics. Due to this, I will not prescribe any narcotics as this can cause dependency and drug abuse. Patient was referred to Follow-up with a primary care doctor in 3-5 days or if symptoms worsen and continue return to emergency room as soon as possible. At time of discharge, the patient does not seem toxic or ill in appearance. No acute signs of distress noted. Patient agrees to discharge treatment plan of care. No further questions noted by the patient. This chart is dictated with using [employer] Critical care attestation.: If time is entered above; I have spent that time in minutes in the direct care of this critically ill patient, excluding procedure time. ED Disposition Clinical Impression: Chronic back pain Qualifiers: Back pain location: low back pain Back pain laterality: unspecified Sciatica presence: with sciatica Sciatica laterality: sciatica laterality unspecified Qualified Code(s): M54.40 - Lumbago with sciatica, unspecified side; G89.29 - Other chronic pain Disposition: TO HOME OR SELFCARE Is pt being admited?: No Does the pt Need Aspirin: No Condition: Stable Instructions: Chronic Back Pain (ED) Additional Instructions: Follow-up with a primary care doctor in 3-5 days or if symptoms worsen and continue return to emergency room as soon as possible. Prescriptions: Acetaminophen [Tylenol Arthritis] 650 mg PO Q8H PRN #30 tablet.er PRN Reason: Pain Referrals: PRIMARY CAREMD [Referring] - 3-5 Days DONNA MELGOZA MD [Staff Physician] - 3-5 Days [facility] [Outside] - 3-5 Days [facility] [Outside] - 3-5 Days
== END 2018-03-03 15:30 | disposition home or self-care (01) ==
LOC: ED 14:45
DX: M54.40 Lumbago with sciatica, unspecified side (principal); G89.29 Other chronic pain; G43.909 Migraine, unspecified, not intractable, without status migrainosus; K21.9 Gastro-esophageal reflux disease without esophagitis; Z88.6 Allergy status to analgesic agent
CPT/HCPCS: 99282

== ENCOUNTER 2018-03-26 22:00 | Emergency (ER) | payer MEDICAID ==
[2018-03-26 23:57] VITALS: BP 119/89
[2018-03-27 00:29] LABS: Bilirubin,Urine NEG (Negative); Blood,Urine NEG (Negative); Color,Urine Yellow (Yellow); Mucus,Urine FEW /HPF; Protein,Urine <15 mg/dL mg/dL (Negative); Urobilinogen,Urine < 2.0 mg/dL (<2.0)
--- NOTE | 2018-03-27 00:53 | XRay Report ---
FINAL REPORT PROCEDURE: XR SPINE LUMBOSACRAL 2-3V TECHNIQUE: Lumbar spine radiographs, frontal and lateral views. CPT 30159 HISTORY: Right lower back pain COMPARISON: No prior studies are available for comparison. FINDINGS: Alignment: Mild right convex mid lumbar curvature. Vertebral body heights/Disk spaces: There is slight loss of disc space height at the L4-5 and L5-S1 levels. Fracture(s): None . Facets: Normal . Bone mineralization: Normal . IMPRESSION: Mild lumbar spondylosis at the L4-5 and L5-S1 levels.
--- NOTE | 2018-03-27 02:32 | Emergency Department Report ---
ED Back Pain/Injury HPI - General Chief Complaint: Back Pain/Injury Stated Complaint: RT FLANK PAIN Time Seen by Provider: 03/27/18 02:24 Source: patient Limitations: No Limitations - History of Present Illness Initial Comments: pt is a 52 y/o aam with hx of low back pain with arthralgia spondylosis, who presents for low back pain after lifting and moving equipment and furniture yesterday, describes pain as 4/10 aching low back pain exacerbated by movement bending and twisting, p, pain is relieved by nothing, there is no numbness no tingling no weakness no low or decrease in bowel or bladder function. MD Complaint: back pain, back injury Onset/Timin -: days(s) Similar Symptoms Previously: Yes Place: home Radiation: right leg Severity: moderate Severity scale (0 -10): 5 Quality: burning, aching Consistency: intermittent Improves With: none Worsens With: movement, other (bending twisting ) Context: while lifting, turning/twisting, bending Associated Symptoms: denies: confusion, weakness, chest pain, numbness, difficulty walking, cough, difficulty urinating, diaphoresis, incontinence, fever/chills, constipation, headaches, abdominal pain, loss of appetite, malaise , nausea/vomiting - Related Data Home Medications Medication Instructions Recorded Confirmed Last Taken Ranitidine HCl [Zantac 150 MG TAB] 75 mg PO QDAY 05/12/16 08/08/16 1 Day Ago ~05/27/16 75 Previous Rx's Medication Instructions Recorded Last Taken Type Famotidine [Pepcid] 20 mg PO BID #30 tablet 08/20/16 Unknown Rx Ondansetron [Zofran TAB] 4 mg PO Q8HR PRN #14 tablet 08/20/16 Unknown Rx Sulfamethoxazole/Trimethoprim 1 each PO BID #14 tablet 01/14/18 Unknown Rx [Bactrim DS TAB] methOCARBAMOL [Robaxin TAB] 1,000 mg PO Q8H PRN #20 tab 02/12/18 Unknown Rx traMADol [Ultram 50 MG tab] 50 mg PO Q8H PRN #5 tablet 02/12/18 Unknown Rx Acetaminophen [Tylenol Arthritis] 650 mg PO Q8H PRN #30 tablet.er 02/18/18 Unknown Rx Cyclobenzaprine [Flexeril] 10 mg PO QHS PRN #7 tablet 02/18/18 Unknown Rx Acetaminophen [Tylenol Arthritis] 650 mg PO Q8H PRN #30 tablet.er 03/03/18 Unknown Rx Acetaminophen [Tylenol Arthritis] 650 mg PO QID PRN #60 tablet.er 03/27/18 Unknown Rx Menthol/Camphor [[place] 1 applic TP TID PRN #1 tube 03/27/18 Unknown Rx Ointment] Allergies Allergy/AdvReac Type Severity Reaction Status Date / Time ibuprofen Allergy Rash Verified 02/12/18 11:25 ketorolac tromethamine Allergy Itching Verified 02/12/18 11:25 [From Toradol] nalbuphine HCl [From Nubain] Allergy Itching Verified 02/12/18 11:25 naproxen Allergy Rash Verified 02/12/18 11:25 tramadol Allergy Rash Verified 02/12/18 11:25 ED Review of Systems ROS: Stated complaint: RT FLANK PAIN Other details as noted in HPI Constitutional: denies: chills, fever Eyes: denies: eye pain, eye discharge, vision change ENT: denies: ear pain, throat pain Respiratory: denies: cough, shortness of breath, wheezing Cardiovascular: denies: chest pain, palpitations Endocrine: no symptoms reported Gastrointestinal: denies: abdominal pain, nausea, diarrhea Genitourinary: denies: urgency, dysuria Musculoskeletal: back pain, arthralgia, myalgia. denies: joint swelling Skin: denies: rash, lesions Neurological: weakness, numbness, paresthesias, abnormal gait, vertigo Psychiatric: as per HPI. denies: anxiety, depression, auditory hallucinations, visual hallucinations, homicidal thoughts, suicidal thoughts Hematological/Lymphatic: denies: easy bleeding, easy bruising ED Past Medical Hx - Past Medical History Hx Hypertension: No Hx CVA: No Hx Heart Attack/AMI: No Hx Congestive Heart Failure: No Hx Diabetes: No Hx Deep Vein Thrombosis: No Hx Pulmonary Embolism: No Hx GERD: Yes Hx Liver Disease: No Hx Renal Disease: No Hx Sickle Cell Disease: No Hx Arthritis: No Hx Headaches / Migraines: Yes (migraines) Hx Seizures: Yes Hx Kidney Stones: No Hx Psychiatric Treatment: No Hx Asthma: No Hx COPD: No Hx Tuberculosis: No Hx Dementia: No Hx HIV: No Additional medical history: Drug-seeking behavior. Narcotic abuse - patient denies. 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 eye - Surgical History Hx Coronary Stent: No Hx Open Heart Surgery: No Hx Pacemaker: No Hx Internal Defibrillator: No Hx Cholecystectomy: Yes Hx Appendectomy: No Hx Breast Surgery: No - Social History Smoking Status: Never Smoker Substance Use Type: None - Medications Home Medications: Home Medications Medication Instructions Recorded Confirmed Last Taken Type Ranitidine HCl [Zantac 150 MG TAB] 75 mg PO QDAY 05/12/16 08/08/16 1 Day Ago History ~05/27/16 75 Famotidine [Pepcid] 20 mg PO BID #30 tablet 08/20/16 Unknown Rx Ondansetron [Zofran TAB] 4 mg PO Q8HR PRN #14 tablet 08/20/16 Unknown Rx Sulfamethoxazole/Trimethoprim 1 each PO BID #14 tablet 01/14/18 Unknown Rx [Bactrim DS TAB] methOCARBAMOL [Robaxin TAB] 1,000 mg PO Q8H PRN #20 tab 02/12/18 Unknown Rx traMADol [Ultram 50 MG tab] 50 mg PO Q8H PRN #5 tablet 02/12/18 Unknown Rx Acetaminophen [Tylenol Arthritis] 650 mg PO Q8H PRN #30 tablet.er 02/18/18 Unknown Rx Cyclobenzaprine [Flexeril] 10 mg PO QHS PRN #7 tablet 02/18/18 Unknown Rx Acetaminophen [Tylenol Arthritis] 650 mg PO Q8H PRN #30 tablet.er 03/03/18 Unknown Rx Acetaminophen [Tylenol Arthritis] 650 mg PO QID PRN #60 tablet.er 03/27/18 Unknown Rx Menthol/Camphor [[place] 1 applic TP TID PRN #1 tube 03/27/18 Unknown Rx Ointment] ED Physical Exam - General Limitations: No Limitations General appearance: alert, in no apparent distress - Head Head exam: Present: atraumatic, normocephalic, normal inspection - Eye Eye exam: Present: normal appearance, PERRL, EOMI Pupils: Present: normal accommodation - ENT ENT exam: Present: mucous membranes moist - Neck Neck exam: Present: normal inspection, full ROM. Absent: tenderness, meningismus, lymphadenopathy, thyromegaly - Respiratory Respiratory exam: Present: normal lung sounds bilaterally. Absent: respiratory distress, wheezes, stridor, chest wall tenderness - Cardiovascular Cardiovascular Exam: Present: regular rate, normal rhythm. Absent: systolic murmur, diastolic murmur, rubs, gallop - GI/Abdominal GI/Abdominal exam: Present: soft, normal bowel sounds. Absent: distended, tenderness, guarding, rebound, rigid, organomegaly, mass, bruit, pulsatile mass , hernia - Rectal Rectal exam: Present: deferred - Extremities Exam Extremities exam: Present: normal inspection, full ROM, normal capillary refill. Absent: tenderness, pedal edema, joint swelling, calf tenderness - Back Exam Back exam: Present: normal inspection, full ROM, tenderness, muscle spasm ( right lateral paraspinus muscle pain ), paraspinal tenderness. Absent: CVA tenderness (R), vertebral tenderness - Expanded Back Exam Expanded Back exam: Absent: saddle anesthesia Back exam: Negative Straight Leg Raising: Right - Neurological Exam Neurological exam: Present: alert, oriented X3, CN II-XII intact, normal gait, reflexes normal - Expanded Neurological Exam Expanded Patient oriented to: Present: person, place, time Speech: Present: fluid speech Cranial nerves: EOM's Intact: Normal, Gag Reflex: Normal, Tongue Deviation: Normal, Nystagmus: Normal, Facial Sensation: Normal Cerebellar function: Finger to Nose: Normal, Heel to Mckeon: Normal, Romberg: Normal Upper motor neuron: Heath Neglect: Normal, Pronator Drift: Normal, Babinski Sign : Normal, Sensory Extinction: Normal Sensory exam: Upper Extremity Light Touch: Normal, Upper Extremity Pin Prick: Normal, Upper Extremity Temperature: Normal, UE 2 Point Discrimination: Normal, Lower Extremity Light Touch: Normal, Lower Extremity Pin Prick: Normal, Lower Extremity Temperature: Normal, LE 2 Point Discrimination: Normal Motor strength exam: RUE: 5, LUE: 5, RLE: 5, LLE: 5 DTR: bicep (R): 0, bicep (L): 0, tricep (R): 0, tricep (L): 0, knee (R): 0, knee (L): 0, ankle (R): 0, ankle (L): 0 Best Eye Response ([place]): (4) open spontaneously Best Motor Response (Daniel): (6) obeys commands Best Verbal Response (Daniel): (5) oriented Daniel Total: 15 - Psychiatric Psychiatric exam: Present: normal affect, normal mood - Skin Skin exam: Present: warm, dry, intact, normal color. Absent: rash ED Course Vital Signs 03/26/18 23:45 Temperature 98.9 F Pulse Rate 78 Respiratory 16 Rate Blood Pressure 119/89 O2 Sat by Pulse 100 Oximetry ED Medical Decision Making - Radiology Data Radiology results: report reviewed, image reviewed Lumbar Spondylosis L4 and L5 no acute fracture - Medical Decision Making improved this acute no chronic low back pain pt has follow up set up for pain management in 2 weeks plan: tylenol arthritis & tiger balm prin , low back excercises and moist heat therapy. pt verbalized agreement and understanding of discharge plan. Critical care attestation.: If time is entered above; I have spent that time in minutes in the direct care of this critically ill patient, excluding procedure time. ED Disposition Clinical Impression: Chest wall pain, Exacerbation of chronic back pain Chronic low back pain with bilateral sciatica Qualifiers: Back pain laterality: right Qualified Code(s): M54.41 - Lumbago with sciatica, right side; M54.42 - Lumbago with sciatica, left side; G89.29 - Other chronic pain Disposition: - TO HOME OR SELFCARE Is pt being admited?: No Does the pt Need Aspirin: No Condition: Good Instructions: Chest Pain (ED), Lumbar Radiculopathy (ED) Prescriptions: Acetaminophen [Tylenol Arthritis] 650 mg PO QID PRN #60 tablet.er PRN Reason: Pain , Severe (7-10) Menthol/Camphor [[place] Ointment] 1 applic TP TID PRN #1 tube PRN Reason: Pain , Severe (7-10) Referrals: PRIMARY CARE,MD [Primary Care Provider] - 3-5 Days Forms: Work/School Release Form(ED) Time of Disposition: 02:32
== END 2018-03-27 02:45 | disposition home or self-care (01) ==
LOC: ED 22:00
DX: M54.41 Lumbago with sciatica, right side (principal); M54.42 Lumbago with sciatica, left side; R07.89 Other chest pain; K21.9 Gastro-esophageal reflux disease without esophagitis
CPT/HCPCS: 72100; 81001

== ENCOUNTER 2018-10-19 09:59 | Emergency (ER) | payer SELFPAY ==
[2018-10-19 10:12] VITALS: BP 121/78
--- NOTE | 2018-10-19 11:55 | Emergency Department Report ---
ED Back Pain/Injury HPI - General Chief Complaint: Extremity Injury, Lower Stated Complaint: SEVERE ABD/LOW BACK/PAIN Time Seen by Provider: 10/19/18 11:43 Source: patient Limitations: No Limitations - History of Present Illness Initial Comments: This is a 53-year-old -[place] male who presents with acute on chronic back pain. Patient states he has chronic low back pain with sciatica right lower extremity. Patient states he was helping his sister move and feel from the third step of a ladder landing to use back side aggravating low back. Patient states sciatica pain to lower extremity increase. Pain is worse with standing and walking. He currently reports pain is 7 out of 10 on pain scale with a throbbing sensation. He is currently taking Flexeril and tramadol which he ran out of 2 days ago. Patient is asking for refills of medication. He has left first appointment with an orthopedic surgeon and [place] and his primary care provider Dr. Cortes on Thursday. MD Complaint: back pain Onset/Timin -: days(s) Similar Symptoms Previously: Yes Place: home Radiation: right leg Severity: moderate Severity scale (0 -10): 7 Quality: other (throbbing) Consistency: intermittent Improves With: medication (prescribed medication) Worsens With: movement, walking Context: fall Associated Symptoms: denies: numbness, difficulty urinating, incontinence, fever/chills Treatments Prior to Arrival: other medications, prescription analgesics - Related Data Home Medications Medication Instructions Recorded Confirmed Last Taken Ranitidine HCl [Zantac 150 MG TAB] 75 mg PO QDAY 05/12/16 08/08/16 1 Day Ago ~05/27/16 75 Previous Rx's Medication Instructions Recorded Last Taken Type Famotidine [Pepcid] 20 mg PO BID #30 tablet 08/20/16 Unknown Rx Ondansetron [Zofran TAB] 4 mg PO Q8HR PRN #14 tablet 08/20/16 Unknown Rx Sulfamethoxazole/Trimethoprim 1 each PO BID #14 tablet 01/14/18 Unknown Rx [Bactrim DS TAB] methOCARBAMOL [Robaxin TAB] 1,000 mg PO Q8H PRN #20 tab 02/12/18 Unknown Rx Acetaminophen [Tylenol Arthritis] 650 mg PO Q8H PRN #30 tablet.er 02/18/18 Unknown Rx Acetaminophen [Tylenol Arthritis] 650 mg PO Q8H PRN #30 tablet.er 03/03/18 Unknown Rx Acetaminophen [Tylenol Arthritis] 650 mg PO QID PRN #60 tablet.er 03/27/18 Unknown Rx Menthol/Camphor [[place] 1 applic TP TID PRN #1 tube 03/27/18 Unknown Rx Ointment] traMADol [Ultram 50 MG tab] 50 mg PO Q6HR PRN #20 tablet 10/02/18 Unknown Rx Cyclobenzaprine [Flexeril 10 MG 10 mg PO QHS PRN #7 tablet 10/19/18 Unknown Rx TAB] traMADol [Ultram 50 MG tab] 50 mg PO Q8H PRN #5 tablet 10/19/18 Unknown Rx Allergies Allergy/AdvReac Type Severity Reaction Status Date / Time ibuprofen Allergy Rash Verified 10/02/18 13:59 ketorolac tromethamine Allergy Itching Verified 10/02/18 13:59 [From Toradol] nalbuphine HCl [From Nubain] Allergy Itching Verified 10/02/18 13:59 naproxen Allergy Rash Verified 10/02/18 13:59 ED Review of Systems ROS: Stated complaint: SEVERE ABD/LOW BACK/PAIN Other details as noted in HPI Constitutional: denies: chills, fever Respiratory: denies: cough, shortness of breath, wheezing Cardiovascular: denies: chest pain, palpitations Gastrointestinal: denies: abdominal pain, nausea, diarrhea Musculoskeletal: back pain (low back pain radiating to right lower extremity). 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 No distress. Alert and acting appropriately. Back/Abdomen: Yes Flank Tenderness (right), No Abdominal Tenderness, No Perithoracic Tenderness, No Perilumbar Tenderness, No Sacroiliac Tenderness, No Straight Leg Raise Pain (the right lower extremity) Neuro: Yes Normal Sensation, Yes Normal DTR's, Yes Normal Gait, No Motor Weakness ED Course Vital Signs 10/19/18 10:08 Temperature 98 F Pulse Rate 89 Respiratory 20 Rate Blood Pressure 121/78 O2 Sat by Pulse 100 Oximetry ED Medical Decision Making - Medical Decision Making Patient was examined by me. Vitals are normal and patient is in no acute distress. This is acute on chronic pain. Start Flexeril and tramadol for 3 days. Patient had a scheduled appointment with Dr. Cortes and an orthopedic surgeon in [place] Dr. Saenz on Thursday. Patient discharged home in stable condition. Follow up with PCP in 2-3 days. Critical care attestation.: If time is entered above; I have spent that time in minutes in the direct care of this critically ill patient, excluding procedure time. ED Disposition Clinical Impression: Right flank pain, Sciatica of right side Disposition: TO HOME OR SELFCARE Is pt being admited?: No Does the pt Need Aspirin: No Condition: Stable Instructions: Sciatica (ED) Additional Instructions: Rest Use ice or heat on affected area for 20 minutes and off for 2 hours. Take pain medication as needed for pain. Don't drive or operate heavy machinery while taking muscle relaxers because they may cause drowsiness. Follow up with Primary Care Provider in 2-3 days. Prescriptions: Cyclobenzaprine [Flexeril 10 MG TAB] 10 mg PO QHS PRN #7 tablet PRN Reason: Muscle Spasm traMADol [Ultram 50 MG tab] 50 mg PO Q8H PRN #5 tablet PRN Reason: Pain Referrals: GAYATHRI CORTES MD [Staff Physician] - 3-5 Days LUZ SAENZ MD [Referring] - 3-5 Days Time of Disposition: 12:05
== END 2018-10-19 12:31 | disposition home or self-care (01) ==
LOC: ED 09:59
DX: M54.31 Sciatica, right side (principal); R10.9 Unspecified abdominal pain; Z88.6 Allergy status to analgesic agent; Z88.8 Allergy status to other drugs, medicaments and biological substances
CPT/HCPCS: 99282

== ENCOUNTER 2018-10-31 00:16 | Emergency (ER) | payer SELFPAY ==
[2018-10-31 02:00] LABS: Alanine Aminotransferase 66 units/L (7-56); Albumin 4.3 g/dL (3.9-5); BUN/Creatinine Ratio 12; Blood Urea Nitrogen 11 mg/dL (9-20); Calcium 8.7 mg/dL (8.4-10.2); Hemolysis Index 13
[2018-10-31] MEDS ORDERED: BENADRYL IV ONE (03:32)
[2018-10-31] MEDS ORDERED: MORPHINE IV ONE (03:32)
[2018-10-31] MEDS ORDERED: NACL 0.9% 1000 ML 3,000 ML IV ONE (03:58)
--- NOTE | 2018-10-31 04:25 | Cat Scan Report ---
FINAL REPORT EXAM: CT ABDOMEN PELVIS W CON HISTORY: abd pain TECHNIQUE: CT images are acquired through the Abdomen and Pelvis in late arterial and delayed phases following intravenous administration of contrast. Transaxial, coronal and sagittal reformations are provided. PRIORS: 06/15/2016 FINDINGS: Partially visualized intrathoracic contents are unremarkable. Cholecystectomy. The liver, Pancreas, spleen, and adrenal glands are unremarkable. Kidneys show no worrisome lesions, hydronephrosis, or calculi. A couple of right renal cysts measurin g up to 3.4 cm are noted and not significantly changed. Urinary bladder is unremarkable. Small and large bowel are normal in caliber. Appendix is normal. Positive contrast/dense material is seen within the ascending and transverse colon. No free air, free fluid, or lymphadenopathy identifie d. Aorta is normal in course and caliber. Superficial soft tissues are unremarkable. No acute or aggressive appearing skeletal findings. IMPRESSION: No acute findings in the abdomen or pelvis.
[2018-10-31 04:34] LABS: Mean Corpuscular HGB Conc 29 % (32-34); Platelet Count 451 K/mm3 (140-440); Red Blood Count 3.68 M/mm3 (3.65-5.03)
[2018-10-31 04:37] LABS: Hemoglobin 7.3 gm/dl (11.8-15.2); Mean Corpuscular Volume 68 fl (84-94)
[2018-10-31 04:39] LABS: Red Cell Distribution Width 20.1 % (13.2-15.2)
--- NOTE | 2018-10-31 04:47 | Emergency Department Report ---
ED General Adult HPI - General Chief complaint: Abdominal Pain Stated complaint: SEVERE ABD PAIN WITH NV Time Seen by Provider: 10/31/18 04:45 Source: patient Mode of arrival: Ambulatory Limitations: No Limitations - History of Present Illness Severity scale (0 -10): 7 - Related Data Home Medications Medication Instructions Recorded Confirmed Last Taken Ranitidine HCl [Zantac 150 MG TAB] 75 mg PO QDAY 05/12/16 08/08/16 1 Day Ago ~05/27/16 75 Previous Rx's Medication Instructions Recorded Last Taken Type Famotidine [Pepcid] 20 mg PO BID #30 tablet 08/20/16 Unknown Rx Ondansetron [Zofran TAB] 4 mg PO Q8HR PRN #14 tablet 08/20/16 Unknown Rx Sulfamethoxazole/Trimethoprim 1 each PO BID #14 tablet 01/14/18 Unknown Rx [Bactrim DS TAB] methOCARBAMOL [Robaxin TAB] 1,000 mg PO Q8H PRN #20 tab 02/12/18 Unknown Rx Acetaminophen [Tylenol Arthritis] 650 mg PO Q8H PRN #30 tablet.er 02/18/18 Unknown Rx Acetaminophen [Tylenol Arthritis] 650 mg PO Q8H PRN #30 tablet.er 03/03/18 Unknown Rx Acetaminophen [Tylenol Arthritis] 650 mg PO QID PRN #60 tablet.er 03/27/18 Unknown Rx Menthol/Camphor [[place] 1 applic TP TID PRN #1 tube 03/27/18 Unknown Rx Ointment] traMADol [Ultram 50 MG tab] 50 mg PO Q6HR PRN #20 tablet 10/02/18 Unknown Rx Cyclobenzaprine [Flexeril 10 MG 10 mg PO QHS PRN #7 tablet 10/19/18 Unknown Rx TAB] traMADol [Ultram 50 MG tab] 50 mg PO Q8H PRN #5 tablet 10/19/18 Unknown Rx Allergies Allergy/AdvReac Type Severity Reaction Status Date / Time ibuprofen Allergy Rash Verified 10/02/18 13:59 ketorolac tromethamine Allergy Itching Verified 10/02/18 13:59 [From Toradol] nalbuphine HCl [From Nubain] Allergy Itching Verified 10/02/18 13:59 naproxen Allergy Rash Verified 10/02/18 13:59 ED Review of Systems ROS: Stated complaint: SEVERE ABD PAIN WITH NV Other details as noted in HPI ED Past Medical Hx - Past Medical History Previous Medical History?: Yes Hx Hypertension: No Hx CVA: No Hx Heart Attack/AMI: No Hx Congestive Heart Failure: No Hx Diabetes: No Hx Deep Vein Thrombosis: No Hx Pulmonary Embolism: No Hx GERD: No Hx Liver Disease: No Hx Renal Disease: No Hx Sickle Cell Disease: No Hx Arthritis: No Hx Headaches / Migraines: Yes (migraines) Hx Seizures: Yes Hx Kidney Stones: No Hx Psychiatric Treatment: No Hx Asthma: No Hx COPD: No Hx Tuberculosis: No Hx Dementia: No Hx HIV: No Additional medical history: 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 eye, anemia - Surgical History Past Surgical History?: Yes Hx Coronary Stent: No Hx Open Heart Surgery: No Hx Pacemaker: No Hx Internal Defibrillator: No Hx Cholecystectomy: Yes Hx Appendectomy: No Hx Breast Surgery: No - Social History Smoking Status: Never Smoker Substance Use Type: None - Medications Home Medications: Home Medications Medication Instructions Recorded Confirmed Last Taken Type Ranitidine HCl [Zantac 150 MG TAB] 75 mg PO QDAY 05/12/16 08/08/16 1 Day Ago History ~05/27/16 75 Famotidine [Pepcid] 20 mg PO BID #30 tablet 08/20/16 Unknown Rx Ondansetron [Zofran TAB] 4 mg PO Q8HR PRN #14 tablet 08/20/16 Unknown Rx Sulfamethoxazole/Trimethoprim 1 each PO BID #14 tablet 01/14/18 Unknown Rx [Bactrim DS TAB] methOCARBAMOL [Robaxin TAB] 1,000 mg PO Q8H PRN #20 tab 02/12/18 Unknown Rx Acetaminophen [Tylenol Arthritis] 650 mg PO Q8H PRN #30 tablet.er 02/18/18 Unknown Rx Acetaminophen [Tylenol Arthritis] 650 mg PO Q8H PRN #30 tablet.er 03/03/18 Unknown Rx Acetaminophen [Tylenol Arthritis] 650 mg PO QID PRN #60 tablet.er 03/27/18 Unknown Rx Menthol/Camphor [[place] 1 applic TP TID PRN #1 tube 03/27/18 Unknown Rx Ointment] traMADol [Ultram 50 MG tab] 50 mg PO Q6HR PRN #20 tablet 10/02/18 Unknown Rx Cyclobenzaprine [Flexeril 10 MG 10 mg PO QHS PRN #7 tablet 10/19/18 Unknown Rx TAB] traMADol [Ultram 50 MG tab] 50 mg PO Q8H PRN #5 tablet 10/19/18 Unknown Rx ED Physical Exam - General Limitations: No Limitations ED Course Vital Signs 10/31/18 00:22 Temperature 98.2 F Pulse Rate 86 Respiratory 18 Rate Blood Pressure 113/73 O2 Sat by Pulse 100 Oximetry ED Medical Decision Making - Lab Data Result diagrams: 10/31/18 03:40 10/31/18 01:30 Critical care attestation.: If time is entered above; I have spent that time in minutes in the direct care of this critically ill patient, excluding procedure time. ED Disposition Clinical Impression: Drug-seeking behavior, Malingering Abdominal pain Qualifiers: Abdominal location: generalized Qualified Code(s): R10.84 - Generalized abdominal pain Disposition: DC-01 TO HOME OR SELFCARE Is pt being admited?: No Does the pt Need Aspirin: No Condition: Stable Referrals: KARRI HOUSE MD [Staff Physician] - 3-5 Days
[2018-10-31 05:12] VITALS: BP 133/89
[2018-10-31 05:47] LABS: Basophils % (Manual) 0 % (0.0-1.8); Eosinophils % (Manual) 0 % (0.0-4.3); Total Cells Counted 100
[2018-10-31 05:48] LABS: Anisocytosis 1+; Hypochromasia 2+
[2018-10-31 05:49] LABS: Ovalocytes Few; Platelet Estimate Consistent w Auto
== END 2018-10-31 04:55 | disposition home or self-care (01) ==
LOC: ED 00:16
DX: R10.84 Generalized abdominal pain (principal); Z76.5 Malingerer [conscious simulation]; G43.909 Migraine, unspecified, not intractable, without status migrainosus
CPT/HCPCS: 36415; 74177; 80053; 85007; 85025; 99284; Q9967

== ENCOUNTER 2021-06-26 20:57 | Emergency (ER) | payer MEDICARE ==
[2021-06-26 21:07] VITALS: BP 93/65
--- NOTE | 2021-06-26 22:49 | Emergency Department Report ---
ED General Adult HPI - General Chief complaint: Medical Clearance Stated complaint: SEVERE HEADACHE/SEIZURES Time Seen by Provider: 06/26/21 21:19 Source: patient Mode of arrival: Ambulatory Limitations: No Limitations - History of Present Illness Initial comments: 55-year-old male with history of CVA Reports been out of his his Depakote earlier today and 6 weeks of Depakote 250mg. Reports no numbness no tingling, no fever, chills, sweats no chest pain palpitation. No nausea, no vomiting. Also has chronic back pain which she seeks to have pain medication prescribed -: Gradual Radiation: non-radiation Quality: dull Consistency: constant Improves with: none Worsens with: none Associated Symptoms: denies other symptoms Treatments Prior to Arrival: none - Related Data Home Medications Medication Instructions Recorded Confirmed Last Taken raNITIdine HCl [Zantac 150 MG TAB] 75 mg PO QDAY 05/12/16 08/08/16 1 Day Ago ~05/27/16 75 Previous Rx's Medication Instructions Recorded Last Taken Type Famotidine [Pepcid] 20 mg PO BID #30 tablet 08/20/16 Unknown Rx Ondansetron [Zofran TAB] 4 mg PO Q8HR PRN #14 tablet 08/20/16 Unknown Rx Sulfamethoxazole/Trimethoprim 1 each PO BID #14 tablet 01/14/18 Unknown Rx [Bactrim DS TAB] methOCARBAMOL [Robaxin TAB] 1,000 mg PO Q8H PRN #20 tab 02/12/18 Unknown Rx Acetaminophen [Tylenol Arthritis] 650 mg PO Q8H PRN #30 tablet.er 02/18/18 Unknown Rx Acetaminophen [Tylenol Arthritis] 650 mg PO Q8H PRN #30 tablet.er 03/03/18 Unknown Rx Acetaminophen [Tylenol Arthritis] 650 mg PO QID PRN #60 tablet.er 03/27/18 Unknown Rx Menthol/Camphor [[place] 1 applic TP TID PRN #1 tube 03/27/18 Unknown Rx Ointment] traMADoL [Ultram 50 MG tab] 50 mg PO Q6HR PRN #20 tablet 10/02/18 Unknown Rx Cyclobenzaprine [Flexeril 10 MG 10 mg PO QHS PRN #7 tablet 10/19/18 Unknown Rx TAB] traMADoL [Ultram 50 MG tab] 50 mg PO Q8H PRN #5 tablet 10/19/18 Unknown Rx Divalproex [Melissa RAINEY] 250 mg PO BID #30 tablet 06/26/21 Unknown Rx Allergies Allergy/AdvReac Type Severity Reaction Status Date / Time ibuprofen Allergy Rash Verified 10/02/18 13:59 ketorolac tromethamine Allergy Itching Verified 10/02/18 13:59 [From Toradol] nalbuphine HCl [From Nubain] Allergy Itching Verified 10/02/18 13:59 naproxen Allergy Rash Verified 10/02/18 13:59 ED Review of Systems ROS: Stated complaint: SEVERE HEADACHE/SEIZURES Other details as noted in HPI Comment: All other systems reviewed and negative ED Past Medical Hx - Past Medical History Previous Medical History?: Yes Hx Hypertension: No Hx CVA: No Hx Heart Attack/AMI: No Hx Congestive Heart Failure: No Hx Diabetes: No Hx Deep Vein Thrombosis: No Hx Pulmonary Embolism: No Hx GERD: No Hx Liver Disease: No Hx Renal Disease: No Hx Sickle Cell Disease: No Hx Arthritis: No Hx Headaches / Migraines: Yes (migraines) Hx Seizures: Yes Hx Kidney Stones: No Hx Psychiatric Treatment: No Hx Asthma: No Hx COPD: No Hx Tuberculosis: No Hx Dementia: No Hx HIV: No Additional medical history: 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 eye, anemia - Surgical History Past Surgical History?: Yes Hx Coronary Stent: No Hx Open Heart Surgery: No Hx Pacemaker: No Hx Internal Defibrillator: No Hx Cholecystectomy: Yes Hx Appendectomy: No Hx Breast Surgery: No - Social History Smoking Status: Never Smoker Substance Use Type: None - Medications Home Medications: Home Medications Medication Instructions Recorded Confirmed Last Taken Type raNITIdine HCl [Zantac 150 MG TAB] 75 mg PO QDAY 05/12/16 08/08/16 1 Day Ago History ~05/27/16 75 Famotidine [Pepcid] 20 mg PO BID #30 tablet 08/20/16 Unknown Rx Ondansetron [Zofran TAB] 4 mg PO Q8HR PRN #14 tablet 08/20/16 Unknown Rx Sulfamethoxazole/Trimethoprim 1 each PO BID #14 tablet 01/14/18 Unknown Rx [Bactrim DS TAB] methOCARBAMOL [Robaxin TAB] 1,000 mg PO Q8H PRN #20 tab 02/12/18 Unknown Rx Acetaminophen [Tylenol Arthritis] 650 mg PO Q8H PRN #30 tablet.er 02/18/18 Unknown Rx Acetaminophen [Tylenol Arthritis] 650 mg PO Q8H PRN #30 tablet.er 03/03/18 Unknown Rx Acetaminophen [Tylenol Arthritis] 650 mg PO QID PRN #60 tablet.er 03/27/18 Unknown Rx Menthol/Camphor [[place] 1 applic TP TID PRN #1 tube 03/27/18 Unknown Rx Ointment] traMADoL [Ultram 50 MG tab] 50 mg PO Q6HR PRN #20 tablet 10/02/18 Unknown Rx Cyclobenzaprine [Flexeril 10 MG 10 mg PO QHS PRN #7 tablet 10/19/18 Unknown Rx TAB] traMADoL [Ultram 50 MG tab] 50 mg PO Q8H PRN #5 tablet 10/19/[address] [DepaKOTE DR] 250 mg PO BID #30 tablet 06/26/21 Unknown Rx ED Physical Exam - General Limitations: No Limitations General appearance: alert, in no apparent distress - Head Head exam: Present: atraumatic, normocephalic - Eye Eye exam: Present: normal appearance Pupils: Present: normal accommodation - ENT ENT exam: Present: mucous membranes moist - Neck Neck exam: Present: normal inspection - Respiratory Respiratory exam: Present: normal lung sounds bilaterally. Absent: respiratory distress - Cardiovascular Cardiovascular Exam: Present: regular rate, normal rhythm. Absent: systolic murmur, diastolic murmur, rubs, gallop - GI/Abdominal GI/Abdominal exam: Present: soft, normal bowel sounds - Rectal Rectal exam: Present: deferred - Extremities Exam Extremities exam: Present: normal inspection - Back Exam Back exam: Present: normal inspection - Neurological Exam Neurological exam: Present: alert, oriented X3 - Psychiatric Psychiatric exam: Present: normal affect, normal mood - Skin Skin exam: Present: warm, dry, intact, normal color. Absent: rash ED Course Vital Signs 06/26/21 21:05 Temperature 98 F Pulse Rate 89 Respiratory 18 Rate Blood Pressure 93/65 [Left] O2 Sat by Pulse 96 Oximetry Critical care attestation.: If time is entered above; I have spent that time in minutes in the direct care of this critically ill patient, excluding procedure time. ED Disposition Clinical Impression: Chronic pain, Medication refill Disposition: HOME / SELF CARE / HOMELESS Is pt being admited?: No Does the pt Need Aspirin: No Condition: Stable Instructions: Authorized Agent-Controlled Analgesia, Chronic Pain, Adult, Pain Medicine Instructions, [id number] Prescriptions: Divalproex [Melissa RAINEY] 250 mg PO BID #30 tablet Referrals: PRIMARY CARE, [Primary Care Provider] - 3-5 Days
[2021-06-26] MEDS ORDERED: DIVALPROEX DR 250 MG TAB PO ONE (22:59)
== END 2021-06-26 23:05 | disposition home or self-care (01) ==
LOC: ED 20:57
DX: G89.29 Other chronic pain (principal); Z76.0 Encounter for issue of repeat prescription; Z88.8 Allergy status to other drugs, medicaments and biological substances
CPT/HCPCS: 99282

== ENCOUNTER 2021-10-13 10:52 | Emergency (ER) | payer MEDICARE ==
--- NOTE | 2021-10-13 13:09 | Emergency Department Report ---
ED Abdominal Pain HPI - General Chief Complaint: Abdominal Pain Stated Complaint: ABDOMINAL PAIN Time Seen by Provider: 10/13/21 12:48 Source: patient Mode of arrival: Ambulatory Limitations: No Limitations - History of Present Illness Initial Comments: 55-year-old male with a past medical history of sciatica and seizure disorders presents to the ER today with complaints of right lower quadrant pain. Patient states that in the past week his sciatic pain on his right side flared up, but he was also diagnosed with a right inguinal hernia in the past 2 weeks and he noticed in the past week it has been more painful but he is also noticed in the past week he has been having pain in his right lower quadrant which she does not typically have with his sciatica nor his hernia. Patient states that the hernia has been reducible. He denies any testicular pain or swelling or UTI symptoms. He states that he did vomit twice yesterday but has not had any nausea vomiting today. He is last bowel movement was about 4 hours ago and was normal. 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 He states that he typically on gabapentin and Vicodin but ran out of his medication 2 days ago. He states that he scheduled to follow-up with his PCP this for his refills. He denies any fever or chills. MD Complaint: abdominal pain -: week(s) (1) - Related Data Home Medications Medication Instructions Recorded Confirmed Last Taken raNITIdine HCl [Zantac 150 MG TAB] 75 mg PO QDAY 05/12/16 08/08/16 1 Day Ago ~05/27/16 75 Previous Rx's Medication Instructions Recorded Last Taken Type Famotidine [Pepcid] 20 mg PO BID #30 tablet 08/20/16 Unknown Rx Ondansetron [Zofran TAB] 4 mg PO Q8HR PRN #14 tablet 08/20/16 Unknown Rx Sulfamethoxazole/Trimethoprim 1 each PO BID #14 tablet 01/14/18 Unknown Rx [Bactrim DS TAB] Menthol/Camphor [[place] 1 applic TP TID PRN #1 tube 03/27/18 Unknown Rx Ointment] Divalproex [Melissa RAINEY] 250 mg PO BID #30 tablet 06/26/21 Unknown Rx Gabapentin 300 mg PO Q8HR #15 capsule 10/13/21 Unknown Rx Metaxalone [Skelaxin] 800 mg PO TID #30 tablet 10/13/21 Unknown Rx Allergies Allergy/AdvReac Type Severity Reaction Status Date / Time ibuprofen Allergy Rash Verified 10/13/21 14:58 ketorolac tromethamine Allergy Itching Verified 10/13/21 14:58 [From Toradol] nalbuphine HCl [From Nubain] Allergy Itching Verified 10/13/21 14:58 naproxen Allergy Rash Verified 10/13/21 14:58 ED Review of Systems ROS: Stated complaint: ABDOMINAL PAIN Other details as noted in HPI Comment: All other systems reviewed and negative Constitutional: denies: chills, fever Eyes: denies: eye pain, eye discharge, vision change ENT: denies: ear pain, throat pain, hearing loss, epistaxis Respiratory: denies: cough, shortness of breath, SOB with exertion, SOB at rest, wheezing Cardiovascular: denies: chest pain, palpitations Endocrine: no symptoms reported Gastrointestinal: abdominal pain, nausea, vomiting. denies: diarrhea, constipation, hematemesis, hematochezia Genitourinary: denies: urgency, dysuria, frequency, hematuria, discharge, testicular pain, testicular mass Musculoskeletal: back pain. denies: joint swelling, arthralgia, myalgia Skin: denies: rash, lesions, change in color, change in hair/nails, pruritus Neurological: denies: headache, weakness, numbness, paresthesias, confusion, abnormal gait, vertigo Psychiatric: denies: anxiety, depression, auditory hallucinations, visual hallucinations, homicidal thoughts, suicidal thoughts Hematological/Lymphatic: denies: easy bleeding, easy bruising, swollen glands ED Past Medical Hx - Past Medical History Hx Hypertension: No Hx CVA: No Hx Heart Attack/AMI: No Hx Congestive Heart Failure: No Hx Diabetes: No Hx Deep Vein Thrombosis: No Hx Pulmonary Embolism: No Hx GERD: No Hx Liver Disease: No Hx Renal Disease: No Hx Sickle Cell Disease: No Hx Arthritis: No Hx Headaches / Migraines: Yes (migraines) Hx Seizures: Yes Hx Kidney Stones: No Hx Psychiatric Treatment: No Hx Asthma: No Hx COPD: No Hx Tuberculosis: No Hx Dementia: No Hx HIV: No Additional medical history: 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 eye, anemia - Surgical History Hx Coronary Stent: No Hx Open Heart Surgery: No Hx Pacemaker: No Hx Internal Defibrillator: No Hx Cholecystectomy: Yes Hx Appendectomy: No Hx Breast Surgery: No - Social History Smoking Status: Never Smoker Substance Use Type: None - Medications Home Medications: Home Medications Medication Instructions Recorded Confirmed Last Taken Type raNITIdine HCl [Zantac 150 MG TAB] 75 mg PO QDAY 05/12/16 08/08/16 1 Day Ago History ~05/27/16 75 Famotidine [Pepcid] 20 mg PO BID #30 tablet 08/20/16 Unknown Rx Ondansetron [Zofran TAB] 4 mg PO Q8HR PRN #14 tablet 08/20/16 Unknown Rx Sulfamethoxazole/Trimethoprim 1 each PO BID #14 tablet 01/14/18 Unknown Rx [Bactrim DS TAB] Menthol/Camphor [[place] 1 applic TP TID PRN #1 tube 03/27/18 Unknown Rx Ointment] Divalproex Dr [DepaKOTE DR] 250 mg PO BID #30 tablet 06/26/21 Unknown Rx Gabapentin 300 mg PO Q8HR #15 capsule 10/13/21 Unknown Rx Metaxalone [Skelaxin] 800 mg PO TID #30 tablet 10/13/21 Unknown Rx ED Physical Exam - General Limitations: No Limitations General appearance: alert, in no apparent distress - Head Head exam: Present: atraumatic, normocephalic, normal inspection - Eye Eye exam: Present: normal appearance, PERRL, EOMI Pupils: Present: normal accommodation - Neck Neck exam: Present: normal inspection, full ROM. Absent: meningismus - Respiratory Respiratory exam: Present: normal lung sounds bilaterally. Absent: respiratory distress, wheezes, rales, rhonchi, stridor - Cardiovascular Cardiovascular Exam: Present: regular rate, normal rhythm, normal heart sounds - GI/Abdominal GI/Abdominal exam: Present: soft, tenderness (Moderate tenderness to palpation right lower quadrant with some guarding.). Absent: distended, guarding, rebound - exam: Present: other (Right inguinal hernia noted but it is reducible and there is some tenderness to palpation.) External exam: Present: normal external exam - Neurological Exam Neurological exam: Present: alert, oriented X3, CN II-XII intact, normal gait - Psychiatric Psychiatric exam: Present: normal affect, normal mood - Skin Skin exam: Present: intact ED Course Vital Signs 10/13/21 10/13/21 10/13/21 10:58 14:55 14:56 Temperature 98.4 F 97.9 F Pulse Rate 73 67 Respiratory 15 20 Rate Blood Pressure 122/81 Blood Pressure 123/75 [Left] O2 Sat by Pulse 97 99 99 Oximetry 10/13/21 14:57 Temperature 97.9 F Pulse Rate 67 Respiratory 20 Rate Blood Pressure 123/69 Blood Pressure [Left] O2 Sat by Pulse 99 Oximetry ED Medical Decision Making - Lab Data Result diagrams: 10/13/21 13:20 10/13/21 13:20 - Radiology Data Radiology results: report reviewed Patient: CESAR LAI MR#: [id number] : 1965 Acct:[id number] Age/Sex: 55 / M ADM Date: 10/13/21 Loc: ED Attending Dr: Ordering Physician: CORAZON WEBSTER Date of Service: 10/13/21 Procedure(s): CT abdomen pelvis w con Accession Number(s): [id number] cc: CORAZON WEBSTER CT ABDOMEN AND PELVIS WITH CONTRAST HISTORY: rlq PAIN COMPARISON: None TECHNIQUE: Routine abdominal and pelvic CT exam performed following intravenous contrast administration.. All CT scans at this location are performed using CT dose reduction for ALARA by means of automated exposure control. FINDINGS: CT ABDOMEN: Lung Bases: Mild chronic scarring in the right middle lobe and lingula. Liver: No significant abnormality. Biliary: Gallbladder is surgically absent. Spleen: No significant abnormality. Unenlarged. Pancreas: No significant abnormality. Adrenals: No significant abnormality. Kidneys: Stable simple cyst in the right kidney measuring up to 3.5 cm. Lymphatics: No lymphadenopathy. Vasculature: No significant abnormality. Bowel/Peritoneum: No significant abnormality. No free air. No free fluid. Normal appendix. CT PELVIC: : No significant abnormality. Lymphatics: No lymphadenopathy. Osseous Structures: No aggressive appearing osseous lesions. Additional Findings: None IMPRESSION: 1. No acute findings or adverse change from prior. Signer Name: Axel Baptiste MD Signed: 10/13/2021 2:50 PM Workstation Name: [id number] Transcribed By: JULIET Dictated By: Axel Baptiste MD Electronically Authenticated By: Axel Baptiste MD Signed Date/Time: 10/13/21 1450 DD/ 1449 TD/TT: - Medical Decision Making 55-year-old male with a past medical history of sciatica and seizure disorders presents to the ER today with complaints of right lower quadrant pain. Patient states that in the past week his sciatic pain on his right side flared up, but he was also diagnosed with a right inguinal hernia in the past 2 weeks and he noticed in the past week it has been more painful but he is also noticed in the past week he has been having pain in his right lower quadrant which she does not typically have with his sciatica nor his hernia. Patient states that the hernia has been reducible. He denies any testicular pain or swelling or UTI symptoms. He states that he did vomit twice yesterday but has not had any nausea vomiting today. He is last bowel movement was about 4 hours ago and was normal. 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 he states that he typically on gabapentin and Vicodin but ran out of his medication 2 days ago. He states that he scheduled to follow-up with his PCP this for his refills. He denies any fever or chills. 1516 ; patient work-up today unremarkable including normal CT abdomen pelvis. His right inguinal hernia is easily reducible. Patient is not toxic, not ill- appearing and not in any significant distress. He is neurologically intact and ambulatory in the ER. Discussed all results with patient. Reviewed patient on PROCEDURE ANALYST aware, and it appears that patient has been getting narcotic prescriptions f rom multiple providers over the past couple months. Patient has also been here multiple times for different pain complaints. Patient sciatica is chronic in nature, he has no bowel or bladder incontinence, saddle anesthesia, lower extremity weakness, fever or chills. Discussed results with patient. He states that he has an appointment with his PCP this for refills on his medication. Also discussed findings on PROCEDURE ANALYST aware with patient and informed him that he need to have a consistent doctor to write his narcotic prescriptions. At this time we will not be able to refill his hydrocodone but I can go ahead and refill his gabapentin and he can get Skelaxin for pain. Patient vital signs are stable. Patient expressed understanding for instructions and agree with plan. Patient was stable at time of discharge. Critical care attestation.: If time is entered above; I have spent that time in minutes in the direct care of this critically ill patient, excluding procedure time. ED Disposition Clinical Impression: Lumbar radiculopathy, chronic, Right inguinal hernia, Abdominal pain Disposition: HOME / SELF CARE / HOMELESS Is pt being admited?: No Does the pt Need Aspirin: No Condition: Stable Instructions: Inguinal Hernia, Adult, [id number], Abdominal Pain, Adult, Radicular Pain Additional Instructions: I recommend that you take the gabapentin as prescribed, and take the Skelaxin as prescribed to help with any pain. Keep your appointment with your primary care doctor this week for follow-up and for refills on your chronic pain medications. Return to the ER if symptoms changes in any way. Prescriptions: Gabapentin 300 mg PO Q8HR #15 capsule Metaxalone [Skelaxin] 800 mg PO TID #30 tablet Referrals: PRIMARY CAREMD [Primary Care Provider] - 3-5 Days Time of Disposition: 15:10
[2021-10-13] MEDS ORDERED: ONDANSETRON 4 MG/2 ML INJ IV ONE (13:14)
[2021-10-13] MEDS ORDERED: SODIUM CHLORIDE 0.9% 1000 ML 1,000 ML IV ONE (13:14)
[2021-10-13] MEDS ORDERED: MORPHINE 2 MG/1 ML INJ IV ONE (13:15)
[2021-10-13 13:27] LABS: Bilirubin,Urine NEG (Negative); Blood,Urine NEG (Negative); Color,Urine Straw (Yellow); Mucus,Urine FEW /HPF; Protein,Urine <15 mg/dL mg/dL (Negative); Urobilinogen,Urine < 2.0 mg/dL (<2.0); WBC,Urine < 1.0 /HPF (0.0-6.0)
[2021-10-13 13:34] LABS: Eosinophils # (Auto) 0.2 K/mm3 (0.0-0.4); Hematocrit 31.3 % (35.5-45.6); Hemoglobin 9.6 gm/dl (11.8-15.2); Lymphocytes # (Auto) 1.2 K/mm3 (1.2-5.4); Lymphocytes % (Auto) 33.7 % (13.4-35.0); Mean Corpuscular HGB Conc 31 % (32-34); Mean Corpuscular Volume 84 fl (84-94); Monocytes # (Auto) 0.4 K/mm3 (0.0-0.8); Monocytes % (Auto) 11.6 % (0.0-7.3); Platelet Count 294 K/mm3 (140-440); Red Blood Count 3.71 M/mm3 (3.65-5.03)
[2021-10-13 13:35] LABS: Red Cell Distribution Width 20.1 % (13.2-15.2)
[2021-10-13 14:00] LABS: Alanine Aminotransferase 24 units/L (7-56); Albumin 4.2 g/dL (3.9-5); BUN/Creatinine Ratio 15; Blood Urea Nitrogen 17 mg/dL (9-20); Calcium 8.7 mg/dL (8.4-10.2); Hemolysis Index 9
[2021-10-13 14:01] LABS: Bilirubin,Direct < 0.2 mg/dL (0-0.2)
--- NOTE | 2021-10-13 14:54 | Cat Scan Report ---
CT ABDOMEN AND PELVIS WITH CONTRAST HISTORY: rlq PAIN COMPARISON: None TECHNIQUE: Routine abdominal and pelvic CT exam performed following intravenous contrast administrat ion.. All CT scans at this location are performed using CT dose reduction for ALARA by means of autom ated exposure control. FINDINGS: CT ABDOMEN: Lung Bases: Mild chronic scarring in the right middle lobe and lingula. Liver: No significant abnormality. Biliary: Gallbladder is surgically absent. Spleen: No significant abnormality. Unenlarged. Pancreas: No significant abnormality. Adrenals: No significant abnormality. Kidneys: Stable simple cyst in the right kidney measuring up to 3.5 cm. Lymphatics: No lymphadenopathy. Vasculature: No significant abnormality. Bowel/Peritoneum: No significant abnormality. No free air. No free fluid. Normal appendix. CT PELVIC: : No significant abnormality. Lymphatics: No lymphadenopathy. Osseous Structures: No aggressive appearing osseous lesions. Additional Findings: None IMPRESSION: 1. No acute findings or adverse change from prior. Signer Name: Axel Baptiste MD Signed: 10/13/2021 2:50 PM Workstation Name: [id number]
[2021-10-13 14:58] VITALS: BP 123/69
== END 2021-10-13 15:17 | disposition home or self-care (01) ==
LOC: ED 10:52
DX: M54.16 Radiculopathy, lumbar region (principal); K40.91 Unilateral inguinal hernia, without obstruction or gangrene, recurrent; R10.9 Unspecified abdominal pain; Z88.6 Allergy status to analgesic agent
CPT/HCPCS: 36415; 74177; 80048; 80076; 81001; 83690; 85025; 96361; 96374; 96375; 99284; J2270; J2405; J7030; Q9967; Q0162

== ENCOUNTER 2021-11-03 08:49 | Emergency (ER) | payer MEDICARE ==
[2021-11-03] MEDS ORDERED: MORPHINE 4 MG/1 ML INJ IV ONE (10:02)
[2021-11-03] MEDS ORDERED: ONDANSETRON 4 MG/2 ML INJ IV ONE (10:02)
[2021-11-03] MEDS ORDERED: SODIUM CHLORIDE 0.9% 1000 ML 1,000 ML IV ONE (10:02)
--- NOTE | 2021-11-03 10:08 | Emergency Department Report ---
ED Male HPI - General Chief complaint: Urogenital-Male Stated complaint: GROIN PAIN/HERNIA Time Seen by Provider: 11/03/21 09:57 Source: patient Mode of arrival: Ambulatory Limitations: No Limitations - History of Present Illness Initial comments: Chief complaint: Groin pain HPI: This is a 56-year-old male with history of chronic pain disorder, migraine headache, inguinal hernia chronic abdominal pain GERD lumbar radiculopathy who presents with right groin pain for the past several days. Patient has severe pain until the right inguinal hernia reduced. Dr. Mayberry spoke with me in person emergency department. He recommended CBC chemistry lactic acid CT abdomen pelvis with IV p.o. contrast. MD Complaint: groin pain -: Gradual, days(s) (Intermittent for several days) Location: right inguinal region Severity: severe Severity scale (0 -10): 7 Quality: aching Consistency: constant Improves with: none, other (Self reduction) Worsens with: none other (Nausea) - Related Data Home Medications Medication Instructions Recorded Confirmed Last Taken raNITIdine HCl [Zantac 150 MG TAB] 75 mg PO QDAY 05/12/16 08/08/16 1 Day Ago ~05/27/16 75 Previous Rx's Medication Instructions Recorded Last Taken Type Famotidine [Pepcid] 20 mg PO BID #30 tablet 08/20/16 Unknown Rx Ondansetron [Zofran TAB] 4 mg PO Q8HR PRN #14 tablet 08/20/16 Unknown Rx Sulfamethoxazole/Trimethoprim 1 each PO BID #14 tablet 01/14/18 Unknown Rx [Bactrim DS TAB] Menthol/Camphor [[place] 1 applic TP TID PRN #1 tube 03/27/18 Unknown Rx Ointment] Divalproex [Melissa RAINEY] 250 mg PO BID #30 tablet 06/26/21 Unknown Rx Gabapentin 300 mg PO Q8HR #15 capsule 10/13/21 Unknown Rx Metaxalone [Skelaxin] 800 mg PO TID #30 tablet 10/13/21 Unknown Rx traMADoL [Ultram 50 MG tab] 50 mg PO Q6HR PRN #15 tablet 11/03/21 Unknown Rx Allergies Allergy/AdvReac Type Severity Reaction Status Date / Time ibuprofen Allergy Rash Verified 10/13/21 14:58 ketorolac tromethamine Allergy Itching Verified 10/13/21 14:58 [From Toradol] nalbuphine HCl [From Nubain] Allergy Itching Verified 10/13/21 14:58 naproxen Allergy Rash Verified 10/13/21 14:58 ED Review of Systems ROS: Stated complaint: GROIN PAIN/HERNIA Other details as noted in HPI Comment: All other systems reviewed and negative Constitutional: denies: chills, fever, malaise Respiratory: denies: cough, shortness of breath Gastrointestinal: abdominal pain, nausea Genitourinary: other (Right groin pain) ED Past Medical Hx - Past Medical History Previous Medical History?: Yes Hx Hypertension: No Hx CVA: No Hx Heart Attack/AMI: No Hx Congestive Heart Failure: No Hx Diabetes: No Hx Deep Vein Thrombosis: No Hx Pulmonary Embolism: No Hx GERD: No Hx Liver Disease: No Hx Renal Disease: No Hx Sickle Cell Disease: No Hx Arthritis: No Hx Headaches / Migraines: Yes (migraines) Hx Seizures: Yes Hx Kidney Stones: No Hx Psychiatric Treatment: No Hx Asthma: No Hx COPD: No Hx Tuberculosis: No Hx Dementia: No Hx HIV: No Additional medical history: 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 eye, anemia - Surgical History Past Surgical History?: Yes Hx Coronary Stent: No Hx Open Heart Surgery: No Hx Pacemaker: No Hx Internal Defibrillator: No Hx Cholecystectomy: Yes Hx Appendectomy: No Hx Breast Surgery: No - Social History Smoking Status: Never Smoker Substance Use Type: None - Medications Home Medications: Home Medications Medication Instructions Recorded Confirmed Last Taken Type raNITIdine HCl [Zantac 150 MG TAB] 75 mg PO QDAY 05/12/16 08/08/16 1 Day Ago History ~05/27/16 75 Famotidine [Pepcid] 20 mg PO BID #30 tablet 08/20/16 Unknown Rx Ondansetron [Zofran TAB] 4 mg PO Q8HR PRN #14 tablet 08/20/16 Unknown Rx Sulfamethoxazole/Trimethoprim 1 each PO BID #14 tablet 01/14/18 Unknown Rx [Bactrim DS TAB] Menthol/Camphor [[place] 1 applic TP TID PRN #1 tube 03/27/18 Unknown Rx Ointment] Divalproex Dr [DepaKOTE DR] 250 mg PO BID #30 tablet 06/26/21 Unknown Rx Gabapentin 300 mg PO Q8HR #15 capsule 10/13/21 Unknown Rx Metaxalone [Skelaxin] 800 mg PO TID #30 tablet 10/13/21 Unknown Rx traMADoL [Ultram 50 MG tab] 50 mg PO Q6HR PRN #15 tablet 11/03/21 Unknown Rx ED Physical Exam - General Limitations: No Limitations General appearance: alert, in no apparent distress - Head Head exam: Present: atraumatic, normocephalic - Eye Eye exam: Present: normal appearance - ENT ENT exam: Present: mucous membranes moist - Neck Neck exam: Present: normal inspection, full ROM - Respiratory Respiratory exam: Present: normal lung sounds bilaterally. Absent: respiratory distress, wheezes, rales, rhonchi - Cardiovascular Cardiovascular Exam: Present: regular rate, normal rhythm, normal heart sounds. Absent: systolic murmur, diastolic murmur, rubs, gallop - GI/Abdominal GI/Abdominal exam: Present: soft, normal bowel sounds. Absent: distended, tenderness, guarding, rebound - Rectal Rectal exam: Present: deferred - exam: Present: normal inspection - Extremities Exam Extremities exam: Present: normal inspection - Back Exam Back exam: Present: normal inspection - Neurological Exam Neurological exam: Present: alert, oriented X3 - Psychiatric Psychiatric exam: Present: normal affect, normal mood - Skin Skin exam: Present: warm, dry, intact, normal color. Absent: rash ED Course Vital Signs 11/03/21 09:08 Temperature 98.6 F Pulse Rate 74 Respiratory 16 Rate Blood Pressure 114/74 [Right] O2 Sat by Pulse 100 Oximetry ED Medical Decision Making - Lab Data Result diagrams: 11/03/21 10:36 11/03/21 10:36 Laboratory Results - last 24 hr 11/03/21 11/03/21 11/03/21 10:36 10:36 10:36 WBC 3.5 L RBC 4.27 Hgb 10.9 L Hct 36.1 MCV 85 MCH 26 L MCHC 30 L RDW 19.9 H Plt Count 376 Lymph % (Auto) 18.2 [place] % (Auto) 7.6 H Eos % (Auto) 1.7 Baso % (Auto) 1.5 Lymph # (Auto) 0.6 L [place] # (Auto) 0.3 Eos # (Auto) 0.1 Baso # (Auto) 0.1 Seg Neutrophils % 71.0 H Seg Neutrophils # 2.5 Sodium 135 L Potassium 3.8 Chloride 101.9 Carbon Dioxide 21 L Anion Gap 16 BUN 16 Creatinine 1.1 Estimated GFR > 60 BUN/Creatinine Ratio 15 Glucose 132 H Lactic Acid 3.60 H* Calcium 8.8 Total Bilirubin < 0.20 Direct Bilirubin < 0.2 Indirect Bilirubin 0.0 AST 14 ALT 12 Alkaline Phosphatase 118 Total Protein 6.8 Albumin 4.5 Albumin/Globulin Ratio 2.0 - Radiology Data Radiology results: report reviewed Institution [facility] Approval Date 2021-11-03 13:01:09 Other Patient ID My Comment(s) Study Comments [facility] [address] [place] [address] Cat Scan Report Signed Patient: CESAR LAI MR#: [id number] : 1965 Acct:[id number] Age/Sex: 56 / M ADM Date: 11/03/21 Loc: ED Attending Dr: Ordering Physician: Antonieta Gill MD Date of Service: 11/03/21 Procedure(s): CT abdomen pelvis w con Accession Number(s): [id number] cc: Antonieta Gill MD CT ABDOMEN AND PELVIS WITH CONTRAST INDICATION / CLINICAL INFORMATION: Abdominal Pain hernias omnipaque 300 100ml. TECHNIQUE: Axial CT images were obtained through the abdomen and pelvis after IV contrast. All CT scans at this location are performed using CT dose reduction for ALARA by means of automated exposure control. COMPARISON: CT 10/13/2021 FINDINGS: LOWER CHEST: No significant abnormality. Chronic scarring in the right middle lobe and lingula again noted. LIVER: No significant abnormality. GALLBLADDER: Cholecystectomy. PANCREAS: No significant abnormality. SPLEEN: No significant abnormality. ADRENALS: No significant abnormality. RIGHT KIDNEY / URETER: 4 cm cyst lower pole. LEFT KIDNEY / URETER: No significant abnormality. STOMACH / SMALL BOWEL: No significant abnormality. Surgical changes from g astric bypass without acute abnormality. COLON: No significant abnormality. APPENDIX: No significant abnormality. PERITONEUM: No free fluid, free air or organized collection. LYMPH NODES: No significant adenopathy. AORTA / ARTERIES/ VEINS: No significant abnormality. URINARY BLADDER: No significant abnormality. REPRODUCTIVE ORGANS: No significant abnormality. ADDITIONAL FINDINGS: None. SKELETAL SYSTEM: No significant abnormality. IMPRESSION: 1. No acute abnormality. No significant interval change compared to reference from 10/13/2021. Signer Name: Cam Bishop MD Signed: 11/03/2021 12:55 PM Workstation Name: [id number] Transcribed By: SB Dictated By: CAM BISHOP MD Electronically Authenticated By: CAM BISHOP MD Signed Date/Time: 11/03/21 1255 DD/ 1253 TD/TT: - Medical Decision Making Right inguinal hernia which has self reduced. I evaluated patient along side Dr. Mayberry general surgeon. Dr. Mayberry personally reviewed the CT imaging. Nonspecific lactic acidosis without significant pain or evidence of incarceration strangulation I do not suspect ischemic bowel or significant bowel injury. Dr. Frankel is in agreement with tramadol Critical care attestation.: If time is entered above; I have spent that time in minutes in the direct care of this critically ill patient, excluding procedure time. ED Disposition Clinical Impression: Right inguinal hernia Disposition: HOME / SELF CARE / HOMELESS Is pt being admited?: No Does the pt Need Aspirin: No Condition: Stable Instructions: Inguinal Hernia, Adult, [id number] Prescriptions: traMADoL [Ultram 50 MG tab] 50 mg PO Q6HR PRN #15 tablet PRN Reason: Pain Referrals: GLENNA MAYBERRY MD [Staff Physician] - 3-5 Days
[2021-11-03 11:12] LABS: Basophils # (Auto) 0.1 K/mm3 (0.0-0.1); Basophils % (Auto) 1.5 % (0.0-1.8); Eosinophils # (Auto) 0.1 K/mm3 (0.0-0.4); Eosinophils % (Auto) 1.7 % (0.0-4.3); Lymphocytes # (Auto) 0.6 K/mm3 (1.2-5.4); Lymphocytes % (Auto) 18.2 % (13.4-35.0); Mean Corpuscular HGB Conc 30 % (32-34); Mean Corpuscular Volume 85 fl (84-94); Monocytes # (Auto) 0.3 K/mm3 (0.0-0.8); Monocytes % (Auto) 7.6 % (0.0-7.3); Platelet Count 376 K/mm3 (140-440); Red Blood Count 4.27 M/mm3 (3.65-5.03); Red Cell Distribution Width 19.9 % (13.2-15.2)
[2021-11-03 11:26] LABS: Hematocrit 36.1 % (35.5-45.6); Hemoglobin 10.9 gm/dl (11.8-15.2)
[2021-11-03 11:34] LABS: Alanine Aminotransferase 12 units/L (7-56); Albumin 4.5 g/dL (3.9-5); BUN/Creatinine Ratio 15; Blood Urea Nitrogen 16 mg/dL (9-20); Calcium 8.8 mg/dL (8.4-10.2); Hemolysis Index 4
[2021-11-03 11:35] LABS: Bilirubin,Direct < 0.2 mg/dL (0-0.2)
--- NOTE | 2021-11-03 12:59 | Cat Scan Report ---
CT ABDOMEN AND PELVIS WITH CONTRAST INDICATION / CLINICAL INFORMATION: Abdominal Pain hernias omnipaque 300 100ml. TECHNIQUE: Axial CT images were obtained through the abdomen and pelvis after IV contrast. All CT sc ans at this location are performed using CT dose reduction for ALARA by means of automated exposure c ontrol. COMPARISON: CT 10/13/2021 FINDINGS: LOWER CHEST: No significant abnormality. Chronic scarring in the right middle lobe and lingula again noted. LIVER: No significant abnormality. GALLBLADDER: Cholecystectomy. PANCREAS: No significant abnormality. SPLEEN: No significant abnormality. ADRENALS: No significant abnormality. RIGHT KIDNEY / URETER: 4 cm cyst lower pole. LEFT KIDNEY / URETER: No significant abnormality. STOMACH / SMALL BOWEL: No significant abnormality. Surgical changes from gastric bypass without acute abnormality. COLON: No significant abnormality. APPENDIX: No significant abnormality. PERITONEUM: No free fluid, free air or organized collection. LYMPH NODES: No significant adenopathy. AORTA / ARTERIES/ VEINS: No significant abnormality. URINARY BLADDER: No significant abnormality. REPRODUCTIVE ORGANS: No significant abnormality. ADDITIONAL FINDINGS: None. SKELETAL SYSTEM: No significant abnormality. IMPRESSION: 1. No acute abnormality. No significant interval change compared to reference from 10/13/2021. Signer Name: Cam Bishop MD Signed: 11/03/2021 12:55 PM Workstation Name: [id number]
[2021-11-03 13:17] VITALS: BP 101/66
== END 2021-11-03 13:17 | disposition home or self-care (01) ==
LOC: ED 08:49
DX: K40.90 Unilateral inguinal hernia, without obstruction or gangrene, not specified as recurrent (principal); G43.909 Migraine, unspecified, not intractable, without status migrainosus; R56.9 Unspecified convulsions; Z79.899 Other long term (current) drug therapy; Z98.890 Other specified postprocedural states; Z88.6 Allergy status to analgesic agent; Z91.09 Other allergy status, other than to drugs and biological substances
CPT/HCPCS: 36415; 74177; 80048; 80076; 82140; 85025; 96361; 96374; 96375; 99284; J2270; J2405; J7030; Q9967; Q0162

== ENCOUNTER 2021-11-16 09:28 | Emergency (ER) | payer MEDICARE ==
--- NOTE | 2021-11-16 10:40 | Emergency Department Report ---
ED Abdominal Pain HPI - General Chief Complaint: Abdominal Pain Stated Complaint: HERNIA/LOWER BC PAIN Time Seen by Provider: 11/16/21 10:18 Source: patient Mode of arrival: Ambulatory Limitations: No Limitations - History of Present Illness Initial Comments: 56-year male with a past medical history of chronic back pain and right inguinal hernia presents to the hospital complaining of worsening and chronic right inguinal hernia pain not alleviated by his hydrocodone 7.5 mg. Patient states he spoke to his surgeon Dr. Mayberry prior to ED arrival was instructed to come for evaluation and pain medication. At time of my evaluation patient states his hernia had spontaneously reduced. Patient states he missed his appointment for surgical correction of hernia last week and has been rescheduled for this upcoming November 20 - Related Data Home Medications Medication Instructions Recorded Confirmed Last Taken Gabapentin 300 mg PO Q8HR PRN 11/06/21 11/06/21 Unknown Previous Rx's Medication Instructions Recorded Last Taken Type Divalproex Dr [DepaKOTE DR] 250 mg PO BID #30 tablet 06/26/21 Unknown Rx Ondansetron [Zofran Odt] 4 mg PO Q8HR PRN #15 tab.rapdis 11/16/21 Unknown Rx Allergies Allergy/AdvReac Type Severity Reaction Status Date / Time ibuprofen Allergy Rash Verified 11/16/21 09:37 ketorolac tromethamine Allergy Itching Verified 11/16/21 09:37 [From Toradol] nalbuphine HCl [From Nubain] Allergy Itching Verified 11/16/21 09:37 naproxen Allergy Rash Verified 11/06/21 15:06 ED Review of Systems ROS: Stated complaint: HERNIA/LOWER BC PAIN Other details as noted in HPI ED Past Medical Hx - Past Medical History Hx Hypertension: No Hx CVA: No Hx Heart Attack/AMI: No Hx Congestive Heart Failure: No Hx Diabetes: No Hx Deep Vein Thrombosis: No Hx Pulmonary Embolism: No Hx GERD: No Hx Liver Disease: No Hx Renal Disease: No Hx Sickle Cell Disease: No Hx Arthritis: No Hx Headaches / Migraines: Yes (MIGRAINES. LAST ONE 2 WEEKS AGO.) Hx Seizures: Yes (GRAND MAL SEIZURES. LAST ONE 6-7 MO AGO.) Hx Kidney Stones: No Hx Psychiatric Treatment: No Hx Asthma: No Hx COPD: No Hx Tuberculosis: No Hx Dementia: No Hx HIV: No Additional medical history: 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 eye, anemia - Surgical History Hx Coronary Stent: No Hx Open Heart Surgery: No Hx Pacemaker: No Hx Internal Defibrillator: No Hx Cholecystectomy: Yes Hx Appendectomy: No Hx Breast Surgery: No - Social History Smoking Status: Never Smoker - Medications Home Medications: Home Medications Medication Instructions Recorded Confirmed Last Taken Type Divalproex Dr [DepaKOTE DR] 250 mg PO BID #30 tablet 06/26/21 11/06/21 Unknown Rx Gabapentin 300 mg PO Q8HR PRN 11/06/21 11/06/21 Unknown History Ondansetron [Zofran Odt] 4 mg PO Q8HR PRN #15 tab.rapdis 11/16/21 Unknown Rx ED Physical Exam - General Limitations: No Limitations - Other Other exam information: General: No acute distress Head: Atraumatic Eyes: normal appearance ENT: Moist mucous membranes Neck: Normal appearance, no midline tenderness Chest: Clear to auscultation bilaterally CV: Regular rate and rhythm Abdomen: Soft, normal bowel sounds, nontender, nondistended, no rebound or guarding. Inguinal hernia has spontaneously reduced prior to my evaluation Back: Normal inspection Extremity: Normal inspection, full range of motion Neuro: Alert O x 3, no facial asymmetry, speech clear, no gross motor sensory deficit Psych: Appropriate behavior Skin: No rash ED Course Vital Signs 11/16/21 11/16/21 11/16/21 09:42 10:27 10:48 Temperature 97.8 F 97.9 F Pulse Rate 76 78 Respiratory 20 15 Rate Blood Pressure 141/83 Blood Pressure 141/96 [Left] O2 Sat by Pulse 100 97 97 Oximetry 11/16/21 11/16/21 12:01 12:21 Temperature 98.4 F Pulse Rate 77 Respiratory 18 17 Rate Blood Pressure Blood Pressure 126/70 [Left] O2 Sat by Pulse 100 Oximetry - Reevaluation(s) Reevaluation #1: 11/16/21 12:24 Patient tolerating a food tray at time of discharge - Consultations Consultation #1: 11/16/21 10:[address] Mayberry. Informed that patient has not had any vomiting since 3 AM and hernia has spontaneous reduced prior to my evaluation and abdomen is benign. Will work patient up with labs, x-ray, and encouraged follow-up if unremarkable. Patient has chronic pain and narcotic dependence as per medical r ecord ED Medical Decision Making - Lab Data Result diagrams: 11/16/21 11:26 11/16/21 11:26 Lab Results 11/16/21 11/16/21 Range/Units 11:26 11:26 WBC 3.7 L (4.5-11.0) K/mm3 RBC 3.76 (3.65-5.03) M/mm3 Hgb 9.4 L (11.8-15.2) gm/dl Hct 31.3 L (35.5-45.6) % MCV 83 L (84-94) fl MCH 25 L (28-32) pg MCHC 30 L (32-34) % RDW 20.1 H (13.2-15.2) % Plt Count 314 (140-440) K/mm3 Lymph % (Auto) 22.5 (13.4-35.0) % [place] % (Auto) 9.5 H (0.0-7.3) % Eos % (Auto) 5.0 H (0.0-4.3) % Baso % (Auto) 0.8 (0.0-1.8) % Lymph # (Auto) 0.8 L (1.2-5.4) K/mm3 [place] # (Auto) 0.4 (0.0-0.8) K/mm3 Eos # (Auto) 0.2 (0.0-0.4) K/mm3 Baso # (Auto) 0.0 (0.0-0.1) K/mm3 Seg Neutrophils % 62.2 (40.0-70.0) % Seg Neutrophils # 2.3 (1.8-7.7) K/mm3 Sodium 144 (137-145) mmol/L Potassium 4.8 (3.6-5.0) mmol/L Chloride 108.0 H (98-107) mmol/L Carbon Dioxide 26 (22-30) mmol/L Anion Gap 15 mmol/L BUN 8 L (9-20) mg/dL Creatinine 1.2 (0.8-1.3) mg/dL Estimated GFR > 60 ml/min BUN/Creatinine Ratio 7 % Glucose 102 H (75-100) mg/dL Calcium 8.9 (8.4-10.2) mg/dL Total Bilirubin < 0.20 (0.1-1.2) mg/dL AST 16 (5-40) units/L ALT 10 (7-56) units/L Alkaline Phosphatase 105 (35-129) units/L Total Protein 6.3 (6.3-8.2) g/dL Albumin 4.5 (3.9-5) g/dL Albumin/Globulin Ratio 2.5 % Lipase 9 L (13-60) units/L - Radiology Data Radiology results: report reviewed XR abd series w cxr 1V INDICATION / CLINICAL INFORMATION: n,v hx of inguinal hernia. COMPARISON: 02/07/2018 FINDINGS: SUPPORT DEVICES: None. HEART / MEDIASTINUM: No significant abnormality. LUNGS / PLEURA: Lungs are clear. Costophrenic sulci are sharp. No pneumothorax. ABDOMEN: Nonobstructive bowel gas pattern. No pneumoperitoneum. ADDITIONAL FINDINGS: Cholecystectomy clips. IMPRESSION: 1. No acute findings. 2. Nonobstructive bowel gas pattern. - Medical Decision Making 56-year male presents to the hospital with complaints of recurrent right lower quadrant pain secondary to inguinal hernia which is reducible and has spo ntaneously reduced prior to my evaluation. Patient reports nausea and vomiting the last 2 days resolved since 3 AM. No vomiting in the ED. Patient treated with Zofran and p.o. Percocet. Patient had 2 CAT scans in October that was unremarkable for hernia or acute abnormality. X-ray today does not show any signs of obstruction and belly is benign on exam. Case discussed with Dr. Mayberry prior to labs. Labs show chronic anemia unchanged from prior no signs of dehydration or electrolyte disturbance given history of recent vomiting. Since ED work-up is unremarkable patient will be discharged home to continue his current outpatient management. Patient also receives hydrocodone 7.5 mg prescribed by his PMD and will not be prescribed any additional narcotic pain medicine today. Critical Care Time: No Critical care attestation.: If time is entered above; I have spent that time in minutes in the direct care of this critically ill patient, excluding procedure time. ED Disposition Clinical Impression: Reducible right inguinal hernia, Chronic pain Disposition: HOME / SELF CARE / HOMELESS Is pt being admited?: No Condition: Stable Instructions: Inguinal Hernia, Adult, [id number], Chronic Pain, Adult Additional Instructions: Continue current medication as prescribed. Follow-up with your surgeon and primary care doctor. Return if symptoms worsen as indicated by your discharge instructions. Prescriptions: Ondansetron [Zofran Odt] 4 mg PO Q8HR PRN #15 tab.rapdis PRN Reason: Nausea And Vomiting Referrals: PRIMARY CARE,MD [Primary Care Provider] - 3-5 Days GLENNA MAYBERRY MD [Staff Physician] - 3-5 Days Time of Disposition: 12:21
[2021-11-16] MEDS ORDERED: ONDANSETRON 4 MG ODT TAB PO ONE (10:53)
--- NOTE | 2021-11-16 11:19 | XRay Report ---
XR abd series w cxr 1V INDICATION / CLINICAL INFORMATION: n,v hx of inguinal hernia. COMPARISON: 02/07/2018 FINDINGS: SUPPORT DEVICES: None. HEART / MEDIASTINUM: No significant abnormality. LUNGS / PLEURA: Lungs are clear. Costophrenic sulci are sharp. No pneumothorax. ABDOMEN: Nonobstructive bowel gas pattern. No pneumoperitoneum. ADDITIONAL FINDINGS: Cholecystectomy clips. IMPRESSION: 1. No acute findings. 2. Nonobstructive bowel gas pattern. Signer Name: Jaziel Suárez MD Signed: 11/16/2021 11:14 AM Workstation Name: [id number]
[2021-11-16] MEDS ORDERED: oxyCODONE /ACETAMINOPHEN 5-325MG TAB PO ONE (11:23)
[2021-11-16 11:47] LABS: Basophils % (Auto) 0.8 % (0.0-1.8); Eosinophils # (Auto) 0.2 K/mm3 (0.0-0.4); Lymphocytes # (Auto) 0.8 K/mm3 (1.2-5.4); Lymphocytes % (Auto) 22.5 % (13.4-35.0); Mean Corpuscular HGB Conc 30 % (32-34); Mean Corpuscular Volume 83 fl (84-94); Monocytes # (Auto) 0.4 K/mm3 (0.0-0.8); Monocytes % (Auto) 9.5 % (0.0-7.3); Platelet Count 314 K/mm3 (140-440); Red Blood Count 3.76 M/mm3 (3.65-5.03)
[2021-11-16 11:55] LABS: Hematocrit 31.3 % (35.5-45.6); Hemoglobin 9.4 gm/dl (11.8-15.2); Red Cell Distribution Width 20.1 % (13.2-15.2)
[2021-11-16 12:04] LABS: Alanine Aminotransferase 10 units/L (7-56); Albumin 4.5 g/dL (3.9-5); BUN/Creatinine Ratio 7; Blood Urea Nitrogen 8 mg/dL (9-20); Calcium 8.9 mg/dL (8.4-10.2); Hemolysis Index 6
[2021-11-16 12:22] VITALS: BP 126/70
== END 2021-11-16 12:25 | disposition home or self-care (01) ==
LOC: ED 09:28
DX: K40.90 Unilateral inguinal hernia, without obstruction or gangrene, not specified as recurrent (principal); G89.29 Other chronic pain; Z88.6 Allergy status to analgesic agent; Z88.8 Allergy status to other drugs, medicaments and biological substances; Z79.899 Other long term (current) drug therapy
CPT/HCPCS: 36415; 74022; 80053; 83690; 85025; 99283; J3490; Q0162

== ENCOUNTER 2021-11-21 09:04 | Day surgery (SDC) | payer MEDICARE ==
[2021-11-20 09:40] LABS: Mean Corpuscular HGB Conc 28 % (32-34); Mean Corpuscular Volume 83 fl (84-94); Platelet Count 452 K/mm3 (140-440)
[2021-11-20 09:48] LABS: Hematocrit 39.8 % (35.5-45.6); Hemoglobin 11.3 gm/dl (11.8-15.2); Red Cell Distribution Width 20.2 % (13.2-15.2)
[2021-11-20 10:03] LABS: Alanine Aminotransferase 10 units/L (7-56); Albumin 4.4 g/dL (3.9-5); BUN/Creatinine Ratio 10; Blood Urea Nitrogen 8 mg/dL (9-20); Calcium 8.8 mg/dL (8.4-10.2); Hemolysis Index 9
[2021-11-20 14:17] LABS: Anisocytosis 1+; Giant Platelets Rare; Hypochromasia 1+; Platelet Estimate Consistent w Auto
[2021-11-20 14:24] LABS: Basophils % (Manual) 0 % (0.0-1.8); Total Cells Counted 100
[~2021-11-21 09:04] MED LIST: ceFAZolin/STERILE WATER 2 GM/20 ML SYRINGE IV NR
[2021-11-21] MEDS ORDERED: HYDROmorphone 1 MG/1 ML INJ IV PRN ×2 (09:51)
[2021-11-21] MEDS ORDERED: ONDANSETRON 4 MG/2 ML INJ IV PRN (09:51)
--- NOTE | 2021-11-21 09:53 | Anesthesia Day of Surgery ---
Anesthesia Day of Surgery - Day of Surgery Patient Examined: Yes Patient H&P Reviewed: Yes Patient is NPO: Yes
--- NOTE | 2021-11-21 09:56 | Anesthesia Consultation ---
Anesthesia Consult and Med Hx Date of service: 11/21/21 - Airway Anesthetic Teeth Evaluation: Good, Edentulous (Upper) ROM Head & Neck: Adequate Mental/Hyoid Distance: Adequate Mallampati Class: Class II Intubation Access Assessment: Good - Pre-Operative Health Status ASA Pre-Surgery Classification: ASA3 Proposed Anesthetic Plan: General Nerve Block: TAP - Pulmonary Hx Smoking: No Hx Asthma: No COPD: No Hx Sleep Apnea: No - Cardiovascular System Hx Hypertension: No Hx Heart Attack/AMI: No Hx Pacemaker: No Hx Internal Defibrillator: No Hx Heart Murmur: Yes (PT STATED HE HAS HAD IT FOR A LONG TIME. NO PROBLEMS.) - Central Nervous System Hx Seizures: Yes (GRAND MAL SEIZURES. LAST ONE 6-7 MO AGO.) Hx Back Pain: Yes (Taking gabapentin for sciatica) Hx Psychiatric Problems: No - Gastrointestinal Hx Ulcer: Yes (PT STATED HE HAS SMALL ULCERS IN STOMACH) Hx Gastroesophageal Reflux Disease: No - Endocrine Hx Renal Disease: No Hx Liver Disease: No - Hematic Hx Anemia: Yes Hx Sickle Cell Disease: No - Other Systems Hx Alcohol Use: No Hx Substance Use: No Hx Cancer: No Hx Obesity: No
[2021-11-21] MEDS ORDERED: MIDAZOLAM 2 MG/2 ML INJ IV NR ×2 (10:00→13:00)
[2021-11-21] MEDS ORDERED: LACTATED RINGERS 1,000 ML IV SCH (10:00)
[2021-11-21] MEDS ORDERED: dexAMETHasone 4 MG/ML VIAL ONE (10:20)
[2021-11-21] MEDS ORDERED: LIDOCAINE (1%) 10 MG/1 ML VIAL 20 ML MDV ONE (10:20)
[2021-11-21] MEDS ORDERED: BUPIVACAINE/PF (0.25%) 2.5 MG/ML 30 ML VIAL INFILTRATI ONE (10:21)
[2021-11-21] MEDS ORDERED: fentaNYL 100 MCG/2 ML INJ IV ONE (10:51)
[2021-11-21] MEDS ORDERED: ACETAMINOPHEN 500 MG TAB PO ONE (10:51)
[2021-11-21] MEDS ORDERED: MAGNESIUM OXIDE 400 MG TAB PO ONE (11:00)
[2021-11-21] MEDS ORDERED: MORPHINE 2 MG/1 ML INJ IV SCH ×2 (12:00→13:00)
[2021-11-21] MEDS ORDERED: HYDROmorphone 1 MG/1 ML INJ ONE (12:57)
[2021-11-21] MEDS ORDERED: ROCURONIUM 50 MG/5 ML INJ IV ONE (12:58)
[2021-11-21] MEDS ORDERED: propofoL 200 MG/20 ML VIAL IV ONE (12:58)
[2021-11-21] MEDS ORDERED: LIDOCAINE MPF (2%) 20 MG/1 ML VIAL 5 ML ONE (12:58)
[2021-11-21] MEDS ORDERED: BUPIVACAINE/PF (0.5%) 5 MG/1 ML 30 ML VIAL INFILTRATI ONE (12:59)
[2021-11-21] MEDS ORDERED: LIDOCAINE 2%/EPINEPHRINE 1:100,000 VIAL (20 ML) INFILTRATI ONE (13:00)
[2021-11-21] MEDS ORDERED: PHENYLEPHRINE/NS 1,000 MCG/10 ML SYRINGE (OR USE) IV ONE (13:46)
[2021-11-21] MEDS ORDERED: ONDANSETRON 4 MG/2 ML INJ ONE (16:45)
[2021-11-21] MEDS ORDERED: GLYCOPYRROLATE 0.4 MG/2 ML INJ ONE (16:46)
[2021-11-21] MEDS ORDERED: NEOSTIGMINE 10MG/10 ML INJ MDV ONE (16:46)
--- NOTE | 2021-11-21 17:07 | Short Stay Summary ---
Short Stay Documentation Date of service: 11/21/21 Narrative H&P: This is a 56-year-old -[place] man who had bilateral inguinal hernia repairs done robotically today. - History H&P: obtained from office Past Medical History: seizures Past Surgical History: No surgical history Social history: smoking - Allergies and Medications Current Medications: Allergies ibuprofen Allergy (Verified 11/16/21 09:37) Rash ketorolac tromethamine [From Toradol] Allergy (Verified 11/16/21 09:37) Itching nalbuphine HCl [From Nubain] Allergy (Verified 11/16/21 09:37) Itching naproxen Allergy (Verified 11/06/21 15:06) Rash Home Medications Medication Instructions Recorded Confirmed Last Taken Type Divalproex Dr [DepaKOTE DR] 250 mg PO BID #30 tablet 06/26/21 11/06/21 11/21/21 02:30 Rx Gabapentin 300 mg PO Q8HR PRN 11/06/21 11/06/21 11/21/21 02:30 History Ondansetron [Zofran Odt] 4 mg PO Q8HR PRN #15 tab.rapdis 11/16/21 Unknown Rx Active Medications Cefazolin Sodium (Cefazolin/Sterile Water 2 Gm/20 Ml Syringe) 2 gm IV PREOP NR Stop: 11/21/21 23:01 Hydromorphone HCl (Hydromorphone 1 Mg/1 Ml Inj) 0.25 mg IV Q10MIN PRN PRN Reason: Pain, Moderate (4-6) Stop: 11/22/21 09:50 Hydromorphone HCl (Hydromorphone 1 Mg/1 Ml Inj) 0.5 mg IV Q10MIN PRN PRN Reason: Pain , Severe (7-10) Stop: 11/22/21 09:50 Lactated Ringer's (Lactated Ringers) 1,000 mls @ 100 mls/hr IV DIRECT PURA Last Admin: 11/21/21 09:38 Dose: 100 mls/hr Midazolam HCl (Midazolam 2 Mg/2 Ml Inj) 2 mg IV PREOP NR Stop: 11/21/21 23:59 Last Admin: 11/21/21 10:25 Dose: 2 mg Midazolam HCl (Midazolam 2 Mg/2 Ml Inj) 2 mg IV PREOP NR Stop: 11/21/21 23:59 Last Admin: 11/21/21 12:59 Dose: 2 mg Ondansetron HCl (Ondansetron 4 Mg/2 Ml Inj) 4 mg IV ONCE PRN PRN Reason: Nausea And Vomiting - Physical exam General appearance: no acute distress Integumentary: no rash HEENT: Atraumatic, PERRLA, EOMI Lungs: Clear to auscultation Heart: Regular rate Gastrointestinal: normal Male Genitourinary: normal Rectal Exam: deferred Extremities: no ischemia, No edema - Brief post op/procedure progress note Date of procedure: 11/21/21 Pre-op diagnosis: Bilateral inguinal hernia Post-op diagnosis: same Procedure: Robotic repair of bilateral inguinal hernia Anesthesia: ANIBAL Surgeon: GLENNA LIM Stucco Applicator: UMA GRIER Estimated blood loss: minimal Pathology: none Condition: stable - Hospital course Hospital course: Patient with bilateral inguinal hernias repaired robotically with mesh. Postoperatively he did well and was discharged home in good condition. - Disposition Condition at discharge: Good Disposition: 01 HOME / SELF CARE / HOMELESS - Discharge Diagnoses (1) Reducible right inguinal hernia Status: Acute Short Stay Discharge Plan Follow up with: PRIMARY MD CHANG [Primary Care Provider] - 7 Days
--- NOTE | 2021-11-21 17:25 | Operative Report ---
Operative Report Operative Report: Date: 11/21/2021 Preop diagnosis: Bilateral inguinal hernia Postop diagnosis: Same Procedure: Robotic bilateral inguinal hernia repair with mesh Surgeon: Dr. Mayberry Nocturnist: Dr. Winston Anesthesia: ANIBAL estimated blood loss: Minimal Specimen: None Findings: This patient presents with bilateral inguinal hernias. He is taken to the OR and under general endotracheal anesthesia timeout is completed consents on the chart. Patient received 2 g of Ancef IV. Menendez catheter is in place. The abdomen is shaved and prepped with ChloraPrep. Sterilely draped. A supraumbilical incision is made. Varies needle was placed through this. Abdomen is insufflated with CO2. A 5 mm Visiport is used to gain access at the supraumbilical incision. And the abdomen is inspected. 8 mm port is established in the right and left hypogastric areas. The 5 Lynne port is removed and a 12 mm port is established. The robot is then docked in the usual fashion. Cautery scissors is used in arm 1 and the bipolar grasper in arm two. 30 degree angled scope was used. Peritoneal incision is made in the right lower quadrant. Properitoneal dissection is then performed to expose the pubic tubercle the hernia and cord structures, and the lateral space. The umbilical hernia is completely dissected free of the internal ring. Attention was then turned to the left lower quadrant. A similar peritoneal incision is made. And the properitoneal dissection is performed to expose the pubic tubercle medially and the lateral space. Left and right large 3D Bard mesh is then placed into the abdomen. The mesh is placed into the properitoneal dissections. Medial and lateral sutures are used with 2-0 Vicryl to fix the edges of the mesh in place. The peritoneal incision is in reapproximated using 3 oh barbed suture. Sponge and needle counts are noted and are correct. The supraumbilical incision is closed with 2-0 Vicryl sutures. CO2 is allowed to exit the abdomen. All ports were then removed. Skin incisions were closed with 4-0 Vicryl and Dermabond. Patient tolerated seizure well.
--- NOTE | 2021-11-21 19:05 | Post Anesthesia Evaluation ---
- Post Anesthesia Evaluation Patient Participated: Yes Airway Patent: Yes Stable Respiratory Function: Yes Nausea/Vomiting: No Temp > 96.8F: Yes Pain Manageable: Yes Adequeate Hydration: Yes Anesthesia Complications: No Block Receding Appropriately: Yes Patient on Ventilator: No
[2021-11-21 19:24] VITALS: BP 127/79
== END 2021-11-21 09:05 | disposition home or self-care (01) ==
LOC: OR 09:04
PROVIDERS: ATTEND Surgery
DX: K40.11 Bilateral inguinal hernia, with gangrene, recurrent (principal); D50.8 Other iron deficiency anemias; Z20.822 Contact with and (suspected) exposure to COVID-19; K25.5 Chronic or unspecified gastric ulcer with perforation; Z90.3 Acquired absence of stomach [part of]; Z79.899 Other long term (current) drug therapy; G43.909 Migraine, unspecified, not intractable, without status migrainosus; Z90.49 Acquired absence of other specified parts of digestive tract; Z98.890 Other specified postprocedural states
CPT/HCPCS: 36415; 49651; 64488; 80053; 85007; 85027; C1781; J0690; J1100; J1170; J1815; J2250; J2270; J2370; J2405; J2704; J2710; J3010; J3490; J7120; U0003; 64450

== ENCOUNTER 2022-03-04 05:59 | Emergency (ER) | payer MEDICARE ==
[2022-03-04] MEDS ORDERED: fentaNYL 100 MCG/2 ML INJ IM ONE (10:25)
[2022-03-04] MEDS ORDERED: predniSONE 20 MG TAB PO ONE (10:25)
[2022-03-04] MEDS ORDERED: CYCLOBENZAPRINE 10 MG TAB PO ONE (10:25)
[2022-03-04] MEDS ORDERED: ONDANSETRON 4 MG ODT TAB PO ONE (10:26)
--- NOTE | 2022-03-04 11:00 | Emergency Department Report ---
ED Fall HPI - General Chief Complaint: Fall Stated Complaint: RT SIDE PAIN DUE TO FALL Time Seen by Provider: 03/04/22 10:07 Source: patient Mode of arrival: Ambulatory - History of Present Illness Initial Comments: 56-year-old black male presents to the emergency department for evaluation of right rib pain after fall. He states that 3 days ago he was carrying furniture down the stairs and he slipped, fell, and the the piece of furniture that he was carrying fell and hit him in his right rib area. He states that he has been having pain to the area since then. He states that pain is worse with movement, deep breathing, and cough. He denies shortness of breath and hemoptysis. He states that he has not taken any medication for his pain. He is also requesting refill of his gabapentin medication. 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 (3) Fall Witnessed: yes, by family Place Fall Occurred: home Loss of Consciousness: none Symptoms Prior to Fall: none Location: other (Right rib area) Severity: severe Severity scale (0 -10): 10 Quality: aching Associated Symptoms: denies: headache, neck pain, numbness, weakness, chest paint, shortness of breath, abdominal pain, hematuria, lightheaded, vertigo, confusion - Related Data Home Medications Medication Instructions Recorded Confirmed Last Taken Gabapentin 300 mg PO Q8HR PRN 11/06/21 03/04/22 1 Day Ago ~03/03/22 Previous Rx's Medication Instructions Recorded Last Taken Type Divalproex [Melissa RAINEY] 250 mg PO BID #30 tablet 06/26/21 1 Day Ago Rx ~03/03/22 Cyclobenzaprine [Flexeril] 10 mg PO TID PRN #30 tab 03/04/22 Unknown Rx Gabapentin 300 mg PO Q8HR PRN #30 capsule 03/04/22 Unknown Rx Prednisone [predniSONE 10 mg 10 mg PO .TAPER #1 pack 03/04/22 Unknown Rx (6-Day Pack, 21 Tabs)] traMADoL [Ultram] 50 mg PO Q6HR PRN #15 tablet 03/04/22 Unknown Rx Allergies Allergy/AdvReac Type Severity Reaction Status Date / Time ibuprofen Allergy Rash Verified 11/16/21 09:37 ketorolac tromethamine Allergy Itching Verified 11/16/21 09:37 [From Toradol] nalbuphine HCl [From Nubain] Allergy Itching Verified 11/16/21 09:37 naproxen Allergy Rash Verified 11/06/21 15:06 ED Review of Systems ROS: Stated complaint: RT SIDE PAIN DUE TO FALL Other details as noted in HPI Comment: All other systems reviewed and negative Constitutional: denies: chills, fever, weakness Eyes: denies: vision change Respiratory: denies: shortness of breath, SOB with exertion, SOB at rest, stridor, wheezing Cardiovascular: denies: chest pain, palpitations, dyspnea on exertion Gastrointestinal: denies: abdominal pain, nausea, vomiting Musculoskeletal: denies: back pain Neurological: denies: headache, weakness, numbness, paresthesias, confusion, abnormal gait, vertigo ED Past Medical Hx - Past Medical History Hx Hypertension: No Hx CVA: No Hx Heart Attack/AMI: No Hx Congestive Heart Failure: No Hx Diabetes: No Hx Deep Vein Thrombosis: No Hx Pulmonary Embolism: No Hx GERD: No Hx Liver Disease: No Hx Renal Disease: No Hx Sickle Cell Disease: No Hx Arthritis: No Hx Headaches / Migraines: Yes (MIGRAINES. LAST ONE 2 WEEKS AGO.) Hx Seizures: Yes (GRAND MAL SEIZURES. LAST ONE 6-7 MO AGO.) Hx Kidney Stones: No Hx Psychiatric Treatment: No Hx Asthma: No Hx COPD: No Hx Tuberculosis: No Hx HIV: No Additional medical history: 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 eye, anemia - Surgical History Hx Coronary Stent: No Hx Open Heart Surgery: No Hx Pacemaker: No Hx Internal Defibrillator: No Hx Cholecystectomy: Yes Hx Appendectomy: No Hx Breast Surgery: No - Social History Smoking Status: Never Smoker - Medications Home Medications: Home Medications Medication Instructions Recorded Confirmed Last Taken Type Divalproex [Melissa RAINEY] 250 mg PO BID #30 tablet 06/26/21 03/04/22 1 Day Ago Rx ~03/03/22 Gabapentin 300 mg PO Q8HR PRN 11/06/21 03/04/22 1 Day Ago History ~03/03/22 Cyclobenzaprine [Flexeril] 10 mg PO TID PRN #30 tab 03/04/22 Unknown Rx Gabapentin 300 mg PO Q8HR PRN #30 capsule 03/04/22 Unknown Rx Prednisone [predniSONE 10 mg 10 mg PO .TAPER #1 pack 03/04/22 Unknown Rx (6-Day Pack, 21 Tabs)] traMADoL [Ultram] 50 mg PO Q6HR PRN #15 tablet 03/04/22 Unknown Rx ED Physical Exam - General Limitations: No Limitations General appearance: alert, in no apparent distress - Head Head exam: Present: atraumatic, normocephalic - Eye Eye exam: Present: normal appearance. Absent: conjunctival injection - Neck Neck exam: Present: normal inspection. Absent: tenderness, full ROM - Respiratory Respiratory exam: Present: normal lung sounds bilaterally, chest wall tenderness. Absent: respiratory distress, wheezes, rales, rhonchi, stridor - Cardiovascular Cardiovascular Exam: Present: regular rate, normal heart sounds - Expanded Cardiovascular Exam Expanded 1 - Tenderness to touch. No ecchymosis noted - GI/Abdominal GI/Abdominal exam: Present: soft, normal bowel sounds. Absent: distended, tenderness, guarding, rebound, rigid - Extremities Exam Extremities exam: Present: normal inspection, normal capillary refill - Back Exam Back exam: Present: normal inspection. Absent: tenderness, CVA tenderness (R), CVA tenderness (L), vertebral tenderness - Neurological Exam Neurological exam: Present: alert, oriented X3, normal gait, reflexes normal. Absent: CN II-XII intact, motor sensory deficit - Psychiatric Psychiatric exam: Present: normal affect, normal mood - Skin Skin exam: Present: warm, dry, intact, normal color ED Course Vital Signs 03/04/22 03/04/22 03/04/22 08:08 10:56 12:00 Temperature 98.4 F 98.4 F Pulse Rate 75 62 Respiratory 18 16 18 Rate Blood Pressure 114/66 138/88 [Right] O2 Sat by Pulse 96 98 Oximetry ED Medical Decision Making - Radiology Data Radiology results: report reviewed, image reviewed Right rib x-ray with PA chest: IMPRESSION: No displaced right rib fracture or rib lesion is detected. There is subtle focal airspace opacity in the right lower lung. This could represent segmental atelectasis or pulmonary contusion given the clinical history. No pleural effusion or pneumothorax. - Medical Decision Making 56-year-old black male presents to the emergency department for evaluation of right rib pain after fall. He states that 3 days ago he was carrying furniture down the stairs and he slipped, fell, and the the piece of furniture that he was carrying fell and hit him in his right rib area. He states that he has been having pain to the area since then. He states that pain is worse with movement, deep breathing, and cough. He denies shortness of breath and hemoptysis. He states that he has not taken any medication for his pain. He is also requesting refill of his gabapentin medication. Right rib x-ray with PA chest without any acute abnormalities noted. Patient will be treated for musculoskeletal pain only, and discharged home with Flexeril Ultram, and prednisone Dosepak to take as needed for rib pain. I will also refill gabapentin 300 mg every 8 hours. He is advised to take medications as prescribed and follow-up with primary care provider if no improvement or worsening symptoms. He verbalizes understanding of and agreement with plan of care. Critical care attestation.: If time is entered above; I have spent that time in minutes in the direct care of this critically ill patient, excluding procedure time. ED Disposition Clinical Impression: Rib pain on right side Fall Qualifiers: Encounter type: initial encounter Qualified Code(s): W19.XXXA - Unspecified fall, initial encounter Disposition: 01 HOME / SELF CARE / HOMELESS Is pt being admited?: No Does the pt Need Aspirin: No Condition: Stable Instructions: Chest Wall Pain, [id number], Rib Contusion Additional Instructions: Take medications as prescribed. Follow-up with primary care provider if no improvement or worsening symptoms. Return to the emergency department as needed. Prescriptions: Cyclobenzaprine [Flexeril] 10 mg PO TID PRN #30 tab PRN Reason: Muscle Spasm Gabapentin 300 mg PO Q8HR PRN #30 capsule PRN Reason: Pain, Moderate (4-6) Prednisone [predniSONE 10 mg (6-Day Pack, 21 Tabs)] 10 mg PO .TAPER #1 pack traMADoL [Ultram] 50 mg PO Q6HR PRN #15 tablet PRN Reason: Pain Referrals: JOSE ELIAS OCHOA MD [Primary Care Provider] - 3-5 Days Time of Disposition: 11:54
--- NOTE | 2022-03-04 11:46 | XRay Report ---
RIGHT RIBS 4 VIEWS INDICATION: fall, pain. Right lower rib pain. Patient fell off stairs with entertainment equipment, it hit him in the right side of the lower ribs. COMPARISON: None. IMPRESSION: No displaced right rib fracture or rib lesion is detected. There is subtle focal airspac e opacity in the right lower lung. This could represent segmental atelectasis or pulmonary contusion given the clinical history. No pleural effusion or pneumothorax. Signer Name: Christian Braun Jr, MD Signed: 03/04/2022 11:40 AM Workstation Name: [id number]
[2022-03-04 12:01] VITALS: BP 138/88
== END 2022-03-04 12:00 | disposition home or self-care (01) ==
LOC: ED 05:59
DX: R07.81 Pleurodynia (principal); Z90.49 Acquired absence of other specified parts of digestive tract; Z88.6 Allergy status to analgesic agent; W19.XXXA Unspecified fall, initial encounter; Y93.89 Activity, other specified; Y92.89 Other specified places as the place of occurrence of the external cause; Y99.8 Other external cause status
CPT/HCPCS: 71101; 96372; 99283; J3010; J3490; Q0162

== ENCOUNTER 2022-03-22 09:22 | Emergency (ER) | payer MEDICARE ==
[2022-03-22 09:26] VITALS: BP 128/82
== END 2022-03-23 00:14 | disposition left against medical advice (07) ==
LOC: ED 09:22
DX: M54.50 Low back pain, unspecified (principal); Z53.21 Procedure and treatment not carried out due to patient leaving prior to being seen by health care provider

== ENCOUNTER 2022-04-03 10:16 | Emergency (ER) | payer MEDICARE | END 2022-04-03 11:00 | disposition left against medical advice (07) | LOC: ED 10:16 | DX: M54.50 Low back pain, unspecified (principal); R51.9 Headache, unspecified; Z53.21 Procedure and treatment not carried out due to patient leaving prior to being seen by health care provider ==